=== PATIENT | male | born 1940 | race African-American/Black ===

== ENCOUNTER 2016-05-24 07:57 | Emergency (ER) | payer MEDICARE, BC, OTHER ==
[~2016-05-24] VITALS: Ht 172.7 cm; Wt 83.0 kg
[~2016-05-24 07:57] MED LIST: CARV3.125 PO; COMMODE 3:1; DIOV160T60 PO; DOCU1CAP39 PO; ERGO50000 PO; FERR324T4 PO; HYDR-3533 PO; NORV5TAB PO; OXYC5 PO; RANI150 PO; TAMS.4 PO; THERM PO; WALKER ROLLING; WHEELCHAIR RENTAL RA; [UNRECOGNIZED DRUG - CODE] TOP
[2016-05-24 08:04] VITALS: BP 166/114; PULSE 75; RESP 20; TEMP 98.7; O2SAT 97
[2016-05-24 08:12] VITALS: O2SAT 97
[2016-05-24] MEDS ORDERED: SODIUM CHLORIDE 0.9% FLUSH 5 ML FLUSH IVF PRN (08:15)
[2016-05-24 08:56] LABS: AUTOMATED NEUTROPHIL # 7.2 TH/MM3 (1.8-7.7); BASOPHIL % 0.3 % (0.0-2.0); EOSINOPHIL # 0.2 TH/MM3 (0-0.4); EOSINOPHIL % 1.7 % (0.0-4.0); HEMATOCRIT 46.2 % (39.0-51.0); HEMO FLAGS DIFF FINAL; LYMPH % 11.5 % (9.0-44.0); LYMPHOCYTE # 1.1 TH/MM3 (1.0-4.8); MEAN CORPUSCULAR HEMOGLOBIN 28.5 PG (27.0-34.0); MEAN CORPUSCULAR HGB CONC 32.7 % (32.0-36.0); MONO % 12.2 % (0.0-8.0); NEUT % 74.3 % (16.0-70.0); PLATELET COUNT 207 TH/MM3 (150-450); RED CELL DISTRIBUTION WIDTH 14.5 % (11.6-17.2); WHITE BLOOD COUNT 9.7 TH/MM3 (4.0-11.0)
--- NOTE | 2016-05-24 09:14 | PD ---
HPI Chief Complaint: Fall Time Seen by Provider: 08:40 Travel History International Travel<30 days: No Contact w/Intl Traveler<30days: No Traveled to known affect area: No History of Present Illness HPI 75-year-old male presents to the ER today because of several days history of feeling more weak, states that he tried to sit down in a couch yesterday and he slipped down to the floor hitting his left elbow. He denies any head injury or loss of consciousness. He is currently complaining of neck pains. He denies any fevers, chest pains, trouble breathing, or other symptoms. Modifying Factors: None Associated Signs & Symptoms: General weakness, fall Risk Factors: Elderly PFSH Past Medical History Arthritis: No Autoimmune Disease: No Heart Rhythm Problems: No Cancer: Yes (sarcoma, prostate CA) Cardiovascular Problems: Yes High Cholesterol: Yes Chemotherapy: No Chest Pain: No Congestive Heart Failure: No Cerebrovascular Accident: No Diabetes: Yes Diminished Hearing: No Endocrine: Yes Genitourinary: Yes Hypertension: Yes Immune Disorder: No Kidney Stones: No Musculoskeletal: Yes Neurologic: Yes Psychiatric: No Reproductive: No Respiratory: No Migraines: No Radiation Therapy: No Renal Failure: No Seizures: No Thyroid Disease: No Past Surgical History Abdominal Surgery: No Cardiac Surgery: No Ear Surgery: No Endocrine Surgery: No Eye Surgery: No Genitourinary Surgery: Yes (prostatectomy 2006) Gynecologic Surgery: No Oral Surgery: No Thoracic Surgery: No Other Surgery: Yes (SARCOMA REMOVED FROM RIGHT AND LEFT SHOULDER) Social History Alcohol Use: No Tobacco Use: No Substance Use: No Allergies-Medications (Allergen,Severity, Reaction): Coded Allergies: No Known Allergies (Verified , 05/24/16) Reported Meds & Prescriptions Reported Meds & Active Scripts Active Review of Systems Except as stated in HPI: all other systems reviewed are Neg Physical Exam Narrative GENERAL: Well-nourished, well-developed elderly -Stateless male patient in no acute distress. Awake, oriented 3. SKIN: Warm and dry. HEAD: Normocephalic. EYES: No scleral icterus. No injection or drainage. NECK: Supple, trachea midline. CARDIOVASCULAR: Regular rate and rhythm without murmurs, gallops, or rubs. RESPIRATORY: Breath sounds equal bilaterally. No accessory muscle use. GASTROINTESTINAL: Abdomen soft, non-tender, nondistended. MUSCULOSKELETAL: No cyanosis, or edema. BACK: Nontender without obvious deformity. No CVA tenderness. EXTREMITIES: No clubbing, cyanosis, or edema. No joint tenderness, effusion, or edema noted. No obvious deformities of the left elbow, nontender range of motion. Data Data Last Documented VS Vital Signs Date Time Temp Pulse Resp B/P Pulse Ox O2 Delivery O2 Flow Rate FiO2 05/24/16 11:01 65 18 126/95 98 Room Air 05/24/16 08:04 98.7 Orders Electrocardiogram (05/24/16 08:08) Complete Blood Count With Diff (05/24/16 08:08) Comprehensive Metabolic Panel (05/24/16 08:08) Magnesium (Mg) (05/24/16 08:08) Ckmb (Isoenzyme) Profile (05/24/16 08:08) Troponin I (05/24/16 08:08) Act Partial Throm Time (Ptt) (05/24/16 08:08) Prothrombin Time / Inr (Pt) (05/24/16 08:08) Urinalysis - C+S If Indicated (05/24/16 08:08) Chest, Single Ap (05/24/16 08:08) Ecg Monitoring (05/24/16 08:08) Iv Access Insert/Monitor (05/24/16 08:08) Oximetry (05/24/16 08:08) Sodium Chloride 0.9% Flush (Ns Flush) (05/24/16 08:15) Ct Brain W/O Iv Contrast(Rout) (05/24/16 08:48) Ct Cerv Spine W/O Contrast (05/24/16 08:48) Apply Cervical Collar (05/24/16 08:48) Cath For Specimen (05/24/16 08:48) Pelvis, Ap Only (Routine) (05/24/16 09:14) Elbow, Complete (4 Vws) (05/24/16 09:14) CKMB (05/24/16 08:40) CKMB% (05/24/16 08:40) Labs Laboratory Tests Test 05/24/16 05/24/16 08:40 11:00 White Blood Count 9.7 TH/MM3 Red Blood Count 5.30 MIL/MM3 Hemoglobin 15.1 GM/DL Hematocrit 46.2 % Mean Corpuscular Volume 87.0 FL Mean Corpuscular Hemoglobin 28.5 PG Mean Corpuscular Hemoglobin 32.7 % Concent Red Cell Distribution Width 14.5 % Platelet Count 207 TH/MM3 Mean Platelet Volume 9.9 FL Neutrophils (%) (Auto) 74.3 % Lymphocytes (%) (Auto) 11.5 % Monocytes (%) (Auto) 12.2 % Eosinophils (%) (Auto) 1.7 % Basophils (%) (Auto) 0.3 % Neutrophils # (Auto) 7.2 TH/MM3 Lymphocytes # (Auto) 1.1 TH/MM3 Monocytes # (Auto) 1.2 TH/MM3 Eosinophils # (Auto) 0.2 TH/MM3 Basophils # (Auto) 0.0 TH/MM3 CBC Comment DIFF FINAL Differential Comment Prothrombin Time 12.9 SEC Prothromb Time International 1.2 RATIO Ratio Activated Partial 30.7 SEC Thromboplast Time Sodium Level 144 MEQ/L Potassium Level 3.8 MEQ/L Chloride Level 110 MEQ/L Carbon Dioxide Level 23.9 MEQ/L Anion Gap 10 MEQ/L Blood Urea Nitrogen 10 MG/DL Creatinine 1.22 MG/DL Estimat Glomerular Filtration 70 ML/MIN Rate Random Glucose 99 MG/DL Calcium Level 9.1 MG/DL Magnesium Level 1.9 MG/DL Total Bilirubin 0.8 MG/DL Aspartate Amino Transf 13 U/L (AST/SGOT) Alanine Aminotransferase 18 U/L (ALT/SGPT) Alkaline Phosphatase 100 U/L Total Creatine Kinase 224 U/L Creatine Kinase MB 2.4 NG/ML Troponin I LESS THAN 0.02 NG/ML Total Protein 7.7 GM/DL Albumin 3.7 GM/DL Urine Color YELLOW Urine Turbidity CLEAR Urine pH 5.5 Urine Specific [place] 1.016 Urine Protein TRACE mg/dL Urine Glucose (UA) NEG mg/dL Urine Ketones NEG mg/dL Urine Occult Blood NEG Urine Nitrite NEG Urine Bilirubin NEG Urine Urobilinogen LESS THAN 2.0 MG/DL Urine Leukocyte Esterase NEG Urine RBC LESS THAN 1 /hpf Urine WBC LESS THAN 1 /hpf Microscopic Urinalysis Comment CULT NOT INDICATED MDM Medical Decision Making Medical Screen Exam Complete: Yes Emergency Medical Condition: Yes Medical Record Reviewed: Yes Interpretation(s) EKG shows normal sinus rhythm at a rate of 71 bpm. No signs of acute ST-T changes. Laboratory Tests Test 05/24/16 08:40 Neutrophils (%) (Auto) 74.3 % (16.0-70.0) Monocytes (%) (Auto) 12.2 % (0.0-8.0) Monocytes # (Auto) 1.2 TH/MM3 (0-0.9) Prothrombin Time 12.9 SEC (9.8-11.6) Activated Partial 30.7 SEC Thromboplast Time (24.3-30.1) Chloride Level 110 MEQ/L (98-107) Estimat Glomerular Filtration 70 ML/MIN (>89) Rate Aspartate Amino Transf 13 U/L (15-37) (AST/SGOT) Troponin I LESS THAN 0.02 NG/ML (0.02-0.05) Last [address] 05/24/16847 Signed Impressions: Service Date/Time: Tuesday, May 24, 2016 09:49 - CONCLUSION: Intracranially unchanged with no acute abnormality. Right posterior scalp subcutaneous nodule has increased in size from 2 now 3 cm with calcification possibly representing sebaceous cyst and correlation with clinical findings recommended. Oliver Agustin MD Cervical Spine CT 05/24/16847 Signed Impressions: Service Date/Time: Tuesday, May 24, 2016 09:49 - CONCLUSION: Extensive degenerative changes as described which are stable. No acute bony injury. Oliver Agustin MD Differential Diagnosis General weakness, falldehydration versus metabolic issues versus sepsis versus acute intracranial processes versus CVA Narrative Course Patient did not have a syncopal episode or loss of consciousness. He just could not get himself up after having fallen off the couch. He does not have any apparent injuries seen on x-rays or CAT scans. Lab work did not indicate significant metabolic issues, sepsis, or other acute processes. At this point, my plan would be to release the patient would follow-up to primary care physician. Return for any worsening in symptoms or new issues as needed. The plan was discussed with the patient and he states understanding. Diagnosis Primary Impression: Falls frequently Disposition: 01 DISCHARGE HOME Condition: Stable Nazario Hope MD May 24, 2016 09:14
[2016-05-24 09:21] LABS: APTT (PATIENT) 30.7 SEC (24.3-30.1); INTERNATIONAL NORMALIZED RATIO 1.2 RATIO; PROTHROMBIN TIME - PATIENT 12.9 SEC (9.8-11.6)
[2016-05-24 09:30] LABS: ANION GAP 10 MEQ/L (5-15); AST (GOT) 13 U/L (15-37); BICARBONATE 23.9 MEQ/L (21.0-32.0); BLOOD UREA NITROGEN 10 MG/DL (7-18); CHLORIDE 110 MEQ/L (98-107); GLOMERULAR FILTRATION RATE 70 ML/MIN (>89); MAGNESIUM 1.9 MG/DL (1.5-2.5); POTASSIUM 3.8 MEQ/L (3.5-5.1); SODIUM (NA) 144 MEQ/L (136-145)
[2016-05-24 09:35] LABS: ALKALINE PHOSPHATASE 100 U/L (45-117); ALT (GPT) 18 U/L (12-78); CREATINE KINASE 224 U/L (39-308); TOTAL BILIRUBIN ADULT 0.8 MG/DL (0.2-1.0)
[2016-05-24 09:48] LABS: CKMB 2.4 NG/ML (0.5-3.6)
--- NOTE | 2016-05-24 10:12 | RADRPT ---
EXAM DATE/TIME: 05/24/2016 09:49 [facility] COMPARISON: CT BRAIN W/O CONTRAST, August 14, 2015, 11:32. INDICATIONS : Weakness. RADIATION DOSE: 56.35 CTDIvol (mGy) MEDICAL HISTORY : Hypertension. Diabetes mellitus type 2. SURGICAL HISTORY : None. ENCOUNTER: Initial ACUITY: 1 day PAIN SCALE: 0/10 LOCATION: cranial TECHNIQUE: Multiple contiguous axial images were obtained of the head. Using automated exposure control and adj ustment of the mA and/or kV according to patient size, radiation dose was kept as low as reasonably a chievable to obtain optimal diagnostic quality images. FINDINGS: CEREBRUM: Stable generalized atrophy with prominent ventricles and sulci. No evidence of midline shift, mass le segundo, hemorrhage or acute infarction. No extra-axial fluid collections are seen. POSTERIOR FOSSA: The cerebellum and brainstem are intact. The 4th ventricle is midline. The cerebellopontine angle i s unremarkable. EXTRACRANIAL: The visualized portion of the orbits is intact. Subcutaneous nodule right posterior scalp is enlarged from 2 up to 3 cm now with some calcification. SKULL: The calvaria is intact. No evidence of skull fracture. CONCLUSION: Intracranially unchanged with no acute abnormality. Right posterior scalp subcutaneous nodule has increa sed in size from 2 now 3 cm with calcification possibly representing sebaceous cyst and correlation w ith clinical findings recommended. Oliver Agustin MD on May 24, 2016 at 10:07 Board Certified Radiologist. This report was verified electronically.
--- NOTE | 2016-05-24 10:15 | RADRPT ---
EXAM DATE/TIME: 05/24/2016 09:49 [facility] COMPARISON: CT CERVICAL SPINE W/O CONTRAST, August 14, 2015, 11:32. INDICATIONS : Neck pain. RADIATION DOSE: 40.19 CTDIvol (mGy) MEDICAL HISTORY : Hypertension. Diabetes mellitus type 2. SURGICAL HISTORY : None. ENCOUNTER: Initial ACUITY: 1 day PAIN SCALE: 3/10 LOCATION: neck TECHNIQUE: Volumetric scanning of the cervical spine was performed. Multiplanar reconstructions in the sagittal, coronal and oblique axial planes were performed. Using automated exposure control and adjustment o f the mA and/or kV according to patient size, radiation dose was kept as low as reasonably achievable to obtain optimal diagnostic quality images. FINDINGS: Alignment appears normal with no evidence of fracture, compression, subluxation or destructive change . Odontoid is no relation to arch of C1. Multilevel extensive degenerative changes is noted with dege nerative disc disease extending from C2 through T1 anterior marginal spurring and posterior lateral m ass facet arthritic changes. CONCLUSION: Extensive degenerative changes as described which are stable. No acute bony injury. Oliver Agustin MD on May 24, 2016 at 10:10 Board Certified Radiologist. This report was verified electronically.
--- NOTE | 2016-05-24 10:43 | RADRPT ---
EXAM DATE/TIME: 05/24/2016 08:36 [facility] COMPARISON: CHEST PA & LAT, September 02, 2015, 14:49. INDICATIONS : Palpitations, short of breath MEDICAL HISTORY : Hypertension. Diabetes mellitus type II. SURGICAL HISTORY : None. ENCOUNTER: Initial ACUITY: 1 day PAIN SCORE: Non-responsive. LOCATION: Bilateral chest FINDINGS: A single view of the chest demonstrates the lungs to be symmetrically aerated without evidence of mas s, infiltrate or effusion. The cardiomediastinal contours are unremarkable. Osseous structures are intact with scoliosis of the thoracic spine to the right and degenerative spurring.. CONCLUSION: No acute disease. Oliver Agustin MD on May 24, 2016 at 10:41 Board Certified Radiologist. This report was verified electronically.
--- NOTE | 2016-05-24 10:56 | RADRPT ---
EXAM DATE/TIME: 05/24/2016 09:53 [facility] COMPARISON: No previous studies available for comparison. INDICATIONS : Fall yesterday. MEDICAL HISTORY : None. SURGICAL HISTORY : None. ENCOUNTER: Initial ACUITY: 2 days PAIN SCORE: 7/10 LOCATION: Right pelvis FINDINGS: A single frontal view of the pelvis demonstrates no evidence of fracture. The bony pelvic ring is in tact. Bony mineralization is normal. The soft tissues are intact. CONCLUSION: Negative for fracture or dislocation. Followup in 7-10 days is suggested if symptoms persist. Primo Gregory MD FACR on May 24, 2016 at 10:53 Board Certified Radiologist. This report was verified electronically.
[2016-05-24 11:01] VITALS: BP 126/95; PULSE 65; RESP 18; O2SAT 98
[2016-05-24 11:23] LABS: BLOOD, URINE NEG (NEG); GLUCOSE,URINE NEG (NEG); KETONE, URINE NEG (NEG); NITRITE,URINE NEG (NEG); PH, URINE 5.5 (5.0-8.5); URINE COLOR YELLOW (YELLW/STRAW)
[2016-05-24 11:24] LABS: COMMENT (UR) CULT NOT INDICATED; CULTURE IF INDICATED CULT NOT INDICATED
--- NOTE | 2016-05-24 11:35 | RADRPT ---
EXAM DATE/TIME: 05/24/2016 09:43 [facility] COMPARISON: No previous studies available for comparison. INDICATIONS : Fall yesterday. MEDICAL HISTORY : None. SURGICAL HISTORY : None. ENCOUNTER: Initial ACUITY: 2 days PAIN SCORE: 9/10 LOCATION: Left upper extremity FINDINGS: Multiple view examination of the left elbow demonstrates no soft tissue swelling, joint effusion, or fracture. The osseous structures are in normal alignment. Bony mineralization is normal. CONCLUSION: Negative for fracture or dislocation. Followup in 7-10 days is suggested if symptoms persist. Primo Gregory MD FACR on May 24, 2016 at 11:27 Board Certified Radiologist. This report was verified electronically.
[2016-05-24] MEDS ORDERED: VALS1TAB65 PO (11:36)
[2016-05-24] MEDS ORDERED: TAMS0.4C4 PO (11:37)
[2016-05-24] MEDS ORDERED: OXYC1TAB13 PO (11:37)
[2016-05-24] MEDS ORDERED: ZANT150T2 PO (11:38)
[2016-05-24] MEDS ORDERED: FERR325T PO (11:41)
[2016-05-24] MEDS ORDERED: HYDR-3533 PO (11:41)
[2016-05-24] MEDS ORDERED: DRIS50002 PO (11:41)
[2016-05-24] MEDS ORDERED: THERTAB17 PO (11:41)
[2016-05-24] MEDS ORDERED: AMLO5 PO (11:41)
[2016-05-24] MEDS ORDERED: COLA100C3 PO (11:42)
[2016-05-24] MEDS ORDERED: CARV3.12 PO (11:45)
[2016-05-24] MEDS ORDERED: [UNRECOGNIZED DRUG - CODE] TOP (11:45)
[2016-05-24 16:19] VITALS: BP 148/75
--- NOTE | 2016-05-24 17:09 | EKG ---
Date Performed: 05/24/2016 Time Performed: 09:19:09 PTAGE: 75 years EKG: Sinus rhythm WITH FIRST DEGREE AV BLOCK INDETERMINATE AXIS POSSIBLE ANTERIOR MYOCARDIAL INFARCTION Compared to pr ior tracing no significant change ABNORMAL ECG PREVIOUS TRACING : 08/15/2015 05.37 DOCTOR: Lilli Spence Interpretating Date/Time 05/24/2016 17:07:24
== END 2016-05-24 16:21 | disposition home or self-care (01) ==
LOC: NEPC 07:57
DX: R29.6 Repeated falls (principal); M25.522 Pain in left elbow; M54.2 Cervicalgia; Z85.46 Personal history of malignant neoplasm of prostate; E78.00 Pure hypercholesterolemia, unspecified; E11.9 Type 2 diabetes mellitus without complications; R94.31 Abnormal electrocardiogram [ECG] [EKG]; I10 Essential (primary) hypertension; I44.0 Atrioventricular block, first degree; W08.XXXA Fall from other furniture, initial encounter; Y92.009 Unspecified place in unspecified non-institutional (private) residence as the place of occurrence of the external cause; Y99.8 Other external cause status
CPT/HCPCS: 70450; 71010; 72125; 72170; 73080; 80053; 81001; 82550; 82552; 83735; 84484; 85025; 85610; 85730; 93005; 99285; L0150; P9612

== ENCOUNTER 2016-05-30 12:48 | Observation (INO) | payer MEDICARE, BC, OTHER ==
[2016-05-30] VITALS (7 sets, daily range): BP systolic 122–150; BP diastolic 74–103; PULSE 65–93; RESP 16–22; TEMP 97.6–98.2; O2SAT 95–97
[~2016-05-30] VITALS: Ht 172.7 cm; Wt 83.0 kg
[~2016-05-30 12:48] MED LIST changes: +AMLO5 PO; +CARV3.12 PO; -CARV3.125 PO; +COLA100C3 PO; -COMMODE 3:1; -DIOV160T60 PO; -DOCU1CAP39 PO; +DRIS50002 PO; -ERGO50000 PO; -FERR324T4 PO; +FERR325T PO; -NORV5TAB PO; +OXYC1TAB13 PO; -OXYC5 PO; -RANI150 PO; -TAMS.4 PO; +TAMS0.4C4 PO; -THERM PO; +THERTAB17 PO; +VALS1TAB65 PO; -WALKER ROLLING; -WHEELCHAIR RENTAL RA; +ZANT150T2 PO; +[UNRECOGNIZED DRUG - CODE] TOP; -[UNRECOGNIZED DRUG - CODE] TOP
--- NOTE | 2016-05-30 13:06 | PD ---
HPI Chief Complaint: Fall Time Seen by Provider: 13:06 Travel History International Travel<30 days: No Contact w/Intl Traveler<30days: No Traveled to known affect area: No History of Present Illness HPI 75-year-old male with a history of hypertension, hyperlipidemia, excision of sarcomas at right and left shoulders, prostatectomy for prostate cancer presents to the emergency department for the second time in a week for evaluation of weakness and fall. The patient states that he was at home and tried to stand up but felt weak bracing himself on a small television in his living room but lost his balance falling to the floor onto his chest. He denies head trauma or loss of consciousness. He states that he had chest pain for about 10 minutes after falling onto his chest which is what prompted him to call EMS. Currently his only complaint is generalized weakness. He denies chest pain, shortness of breath, lightheadedness, dizziness, numbness or tingling, headache, fever, chills, abdominal pain, nausea, vomiting, diarrhea, cough or cold symptoms. He has left periorbital ecchymosis and swelling which she reports is old and that [facility]. Patient normally ambulates with a wheelchair or walker. He does live at home alone. No other complaints. PFSH Past Medical History Arthritis: No Autoimmune Disease: No Heart Rhythm Problems: No Cancer: Yes (sarcoma, prostate CA) Cardiovascular Problems: Yes High Cholesterol: Yes Chemotherapy: No Chest Pain: No Congestive Heart Failure: No Cerebrovascular Accident: No Diabetes: Yes Patient Takes Glucophage: No Diminished Hearing: No Endocrine: Yes Genitourinary: Yes Hypertension: Yes Immune Disorder: No Kidney Stones: No Musculoskeletal: Yes Neurologic: Yes Psychiatric: No Reproductive: No Respiratory: No Migraines: No Radiation Therapy: No Renal Failure: No Seizures: No Thyroid Disease: No Past Surgical History Abdominal Surgery: No Cardiac Surgery: No Ear Surgery: No Endocrine Surgery: No Eye Surgery: No Genitourinary Surgery: Yes (prostatectomy 2006) Gynecologic Surgery: No Oral Surgery: No Thoracic Surgery: No Other Surgery: Yes (SARCOMA REMOVED FROM RIGHT AND LEFT SHOULDER) Social History Alcohol Use: No Tobacco Use: No Substance Use: No Allergies-Medications (Allergen,Severity, Reaction): Coded Allergies: No Known Allergies (Verified , 05/24/16) Reported Meds & Prescriptions Reported Meds & Active Scripts Active Reported Carvedilol 3.125 Mg Tab 3.125 Mg PO Q12HR Tgt Bacitracin (Bacitracin (Topical)) 500 Unit/Gm Oin 0.9 Gm TOP DAILY Thera-M (Multiple Vitamins W/ Minerals) 1 Tab 1 Tab PO DAILY Norvasc (Amlodipine Besylate) 5 Mg Tab 5 Mg PO DAILY Tamsulosin (Tamsulosin HCl) 0.4 Mg Cap 0.4 Mg PO HS Valsartan 160 Mg Tab 160 Mg PO DAILY Review of Systems Except as stated in HPI: all other systems reviewed are Neg Physical Exam Narrative GENERAL: Frail elderly male patient in no acute distress. SKIN: Abrasion to left forehead. HEAD: Normocephalic and atraumatic. EYES: Left periorbital ecchymosis and swelling with subconjunctival hemorrhage of left eye. There is some crusting of the eyelids bilaterally. No scleral icterus. PERRLA. EOMI. No hyphema present. ENT: No septal hematoma or hemotympanum noted. Oropharynx is clear and the airway is patent. NECK: Supple and the trachea is midline. No obvious deformities, crepitus, or midline tenderness noted. CARDIOVASCULAR: Regular rate and rhythm. RESPIRATORY: Breath sounds are equal bilaterally with no accessory muscle use, wheezing, rhonchi, or crackles. GASTROINTESTINAL: Abdomen is soft, non-tender, and nondistended. MUSCULOSKELETAL: Surgical scars noted to bilateral shoulders with decreased range of motion in shoulder he reports as chronic secondary to surgeries. No obvious deformities, swelling, cyanosis, or ecchymosis is present throughout the upper and lower extremities. Patient has full range of motion without any signs of neurovascular compromise. BACK: Nontender without any obvious deformities, bony point tenderness, or crepitus noted throughout the thoracic and lumbar vertebrae. NEUROLOGICAL: Awake, alert, and oriented to person, place and situation He is disoriented to time. Normal speech and gait. Cranial nerves are grossly intact. Data Data Last Documented VS Vital Signs Date Time Temp Pulse Resp B/P Pulse Ox O2 Delivery O2 Flow Rate FiO2 05/30/16 14:15 71 22 150/85 97 Room Air 05/30/16 12:58 98.2 Orders Electrocardiogram (05/30/16 13:03) Ckmb (Isoenzyme) Profile (05/30/16 13:03) Complete Blood Count With Diff (05/30/16 13:03) Comprehensive Metabolic Panel (05/30/16 13:03) Prothrombin Time / Inr (Pt) (05/30/16 13:03) Act Partial Throm Time (Ptt) (05/30/16 13:03) Troponin I (05/30/16 13:03) Ecg Monitoring (05/30/16 13:03) Iv Access Insert/Monitor (05/30/16 13:03) Oximetry (05/30/16 13:03) Sodium Chloride 0.9% Flush (Ns Flush) (05/30/16 13:15) Chest, Single Ap (05/30/16 13:03) Ct Brain W/O Iv Contrast(Rout) (05/30/16 13:03) Ct Cerv Spine W/O Contrast (05/30/16 13:03) Ct Facial Bones W/O Iv Cont (05/30/16 13:03) Creatine Kinase (Cpk) (05/30/16 13:03) Urinalysis - C+S If Indicated (05/30/16 13:38) Vascular Access (05/30/16 13:41) Vascular Poc Ultrasound (05/30/16 ) CKMB (05/30/16 14:20) CKMB% (05/30/16 14:20) Admit Order (Ed Use Only) (05/30/16 15:20) Labs Laboratory Tests Test 05/30/16 05/30/16 13:41 14:20 Urine Color YELLOW Urine Turbidity CLEAR Urine pH 5.5 Urine Specific [place] 1.020 Urine Protein TRACE mg/dL Urine Glucose (UA) NEG mg/dL Urine Ketones 10 mg/dL Urine Occult Blood NEG Urine Nitrite NEG Urine Bilirubin NEG Urine Urobilinogen LESS THAN 2.0 MG/DL Urine Leukocyte Esterase NEG Urine RBC 1 /hpf Urine WBC 1 /hpf Urine Mucus FEW /lpf Microscopic Urinalysis Comment CULT NOT INDICATED White Blood Count 12.3 TH/MM3 Red Blood Count 4.75 MIL/MM3 Hemoglobin 13.9 GM/DL Hematocrit 41.5 % Mean Corpuscular Volume 87.3 FL Mean Corpuscular Hemoglobin 29.3 PG Mean Corpuscular Hemoglobin 33.5 % Concent Red Cell Distribution Width 14.7 % Platelet Count 180 TH/MM3 Mean Platelet Volume 10.5 FL Neutrophils (%) (Auto) 73.5 % Lymphocytes (%) (Auto) 9.6 % Monocytes (%) (Auto) 15.6 % Eosinophils (%) (Auto) 0.8 % Basophils (%) (Auto) 0.5 % Neutrophils # (Auto) 9.0 TH/MM3 Lymphocytes # (Auto) 1.2 TH/MM3 Monocytes # (Auto) 1.9 TH/MM3 Eosinophils # (Auto) 0.1 TH/MM3 Basophils # (Auto) 0.1 TH/MM3 CBC Comment DIFF FINAL Differential Comment Prothrombin Time 12.7 SEC Prothromb Time International 1.1 RATIO Ratio Activated Partial 31.7 SEC Thromboplast Time Sodium Level 141 MEQ/L Potassium Level 4.8 MEQ/L Chloride Level 108 MEQ/L Carbon Dioxide Level 23.4 MEQ/L Anion Gap 10 MEQ/L Blood Urea Nitrogen 24 MG/DL Creatinine 1.21 MG/DL Estimat Glomerular Filtration 71 ML/MIN Rate Random Glucose 78 MG/DL Calcium Level 8.9 MG/DL Total Bilirubin 1.0 MG/DL Aspartate Amino Transf 48 U/L (AST/SGOT) Alanine Aminotransferase 29 U/L (ALT/SGPT) Alkaline Phosphatase 86 U/L Total Creatine Kinase 521 U/L Creatine Kinase MB 7.3 NG/ML Creatine Kinase MB % 1.4 % Troponin I LESS THAN 0.02 NG/ML Total Protein 7.1 GM/DL Albumin 3.2 GM/DL [facility] Medical Decision Making Medical Screen Exam Complete: Yes Emergency Medical Condition: Yes Differential Diagnosis Dehydration versus electrolyte abnormality versus impaired ADLs versus frequent falls versus intracranial hemorrhage versus contusion Narrative Course 75-year-old male presents to the emergency department for evaluation of generalized weakness and frequent falls. Patient is afebrile, vital signs are stable. No focal neurologic deficits. He does have some left periorbital ecchymosis on examination, it appears subacute however was not noted on examination when the patient was seen here in our ED 6 days ago therefore I'm unsure when this occurred and the patient is stating he fell today. Therefore we'll do a head, maxillofacial and cervical spine CT. IV access is obtained, labs were drawn and sent. EKG shows sinus rhythm with no acute ST elevations or depressions. CBC shows a slightly elevated white blood cell count of 12.3, otherwise unremarkable. CMP shows slightly elevated BUN of 24, slightly elevated CPK of 521. Patient may be mildly dehydrated. Troponin is less than 0.02. Coags are unremarkable. Urinalysis shows 10 ketones and few mucus. Chest x-ray is negative for acute abnormality. Head CT is negative for any Abnormality. Cervical spine CT is negative for any Abnormality. Maxillofacial CT is negative for any acute abnormalities. Patient has remained stable and without complaint while here in the emergency department. The patient is weak and lives at home alone. This is the second time he has been to our emergency department in the last week for a fall. He is a fall risk and will require physical therapy evaluation and possible placement or home health care. Physician Communication Physician Communication I spoke with Dr. Naranjo [facility] who agrees to admit the patient under his service for observation. Diagnosis Primary Impression: Generalized weakness Additional Impressions: Falls frequently Impaired mobility and activities of daily living Admitting Information Admitting Physician Requests: Observation Anisha Beckett May 30, 2016 13:06
[2016-05-30] MEDS ORDERED: SODIUM CHLORIDE 0.9% FLUSH 5 ML FLUSH IVF PRN (13:15)
--- NOTE | 2016-05-30 13:35 | RADRPT ---
EXAM DATE/TIME: 05/30/2016 13:17 [facility] COMPARISON: CHEST SINGLE AP, May 24, 2016, 8:36. INDICATIONS : Chest pain. MEDICAL HISTORY : None. SURGICAL HISTORY : None. ENCOUNTER: Initial ACUITY: 1 day PAIN SCORE: 4/10 LOCATION: Bilateral chest FINDINGS: A single view of the chest demonstrates the lungs to be symmetrically aerated without evidence of mas s, infiltrate or effusion. The cardiomediastinal contours are unremarkable. Osseous structures are intact. There some old healed right-sided rib fractures. There are degenerative changes of the thorac ic spine. CONCLUSION: No acute disease. No significant change has occurred. Wilber Higgins MD on May 30, 2016 at 13:32 Board Certified Radiologist. This report was verified electronically.
[2016-05-30 14:00] LABS: BLOOD, URINE NEG (NEG); GLUCOSE,URINE NEG (NEG); KETONE, URINE 10 mg/dL (NEG); MUCUS URINE FEW /lpf (OCC); NITRITE,URINE NEG (NEG); PH, URINE 5.5 (5.0-8.5); URINE COLOR YELLOW (YELLW/STRAW)
[2016-05-30 14:03] LABS: COMMENT (UR) CULT NOT INDICATED; CULTURE IF INDICATED CULT NOT INDICATED
--- NOTE | 2016-05-30 14:09 | RADRPT ---
EXAM DATE/TIME: 05/30/2016 13:48 [facility] COMPARISON: CT BRAIN W/O CONTRAST, May 24, 2016, 9:49. INDICATIONS : Alterd mental status. Fell this morning. RADIATION DOSE: 45.63 CTDIvol (mGy) MEDICAL HISTORY : Cardiovascular disease. Hypertension. Diabetes mellitus type 2. SURGICAL HISTORY : None. ENCOUNTER: Initial ACUITY: 1 day PAIN SCALE: 5/10 LOCATION: cranial TECHNIQUE: Multiple contiguous axial images were obtained of the head. Using automated exposure control and adj ustment of the mA and/or kV according to patient size, radiation dose was kept as low as reasonably a chievable to obtain optimal diagnostic quality images. FINDINGS: CEREBRUM: The ventricles are normal for age. No evidence of midline shift, mass lesion, hemorrhage or acute in farction. There is a stable small left-sided subdural hygroma with a 1.2 cm of separation. The stable hygroma is along the left frontal parietal region. This is unchanged compared to the prior exam. The re is stable chronic white matter changes in bilateral cortical atrophy. POSTERIOR FOSSA: The cerebellum and brainstem are intact. The 4th ventricle is midline. The cerebellopontine angle i s unremarkable. EXTRACRANIAL: The visualized portion of the orbits is intact. Chronic bilateral maxillary sinus disease. Stable 1.2 cm soft tissue density in the subcutaneous soft tissues along the posterior right occipital area. SKULL: The calvaria is intact. No evidence of skull fracture. CONCLUSION: 1. Stable CT scan of the brain compared to the prior study. 2. 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 3. No change in the soft tissue mass in the subcutaneous soft tissues along the posterior right occip ital area. Wilber Higgins MD on May 30, 2016 at 14:04 Board Certified Radiologist. This report was verified electronically.
--- NOTE | 2016-05-30 14:15 | RADRPT ---
EXAM DATE/TIME: 05/30/2016 13:48 [facility] COMPARISON: CT CERVICAL SPINE W/O CONTRAST, May 24, 2016, 9:49. INDICATIONS : Fell this morning. Pain. RADIATION DOSE: 21.86 CTDIvol (mGy) MEDICAL HISTORY : Cardiovascular disease. Carcinoma, prostate. Hypertension. SURGICAL HISTORY : None. ENCOUNTER: Initial ACUITY: 1 day PAIN SCALE: 5/10 LOCATION: neck TECHNIQUE: Volumetric scanning of the cervical spine was performed. Multiplanar reconstructions in the sagittal, coronal and oblique axial planes were performed. Using automated exposure control and adjustment o f the mA and/or kV according to patient size, radiation dose was kept as low as reasonably achievable to obtain optimal diagnostic quality images. FINDINGS: Today's exam is compared to the recent prior study which was performed only a few days ago. There con tinues to be diffuse and extensive primary bony degenerative changes, disc degeneration and disc spac e narrowing throughout the entire cervical spine. No acute bony fracture is demonstrated. The degener ative changes are stable. No focal soft tissue swelling is demonstrated. No significant extra dural d efects are seen in the spinal canal. CONCLUSION: Stable CT scan of the cervical spine compared to the recent prior study. Wilber Higgins MD on May 30, 2016 at 14:11 Board Certified Radiologist. This report was verified electronically.
--- NOTE | 2016-05-30 14:16 | RADRPT ---
EXAM DATE/TIME: 05/30/2016 13:48 [facility] COMPARISON: No previous studies available for comparison. INDICATIONS : Fell this morning. RADIATION DOSE: 64.24 CTDIvol (mGy) MEDICAL HISTORY : Cardiovascular disease. Carcinoma, prostate. Hypertension. SURGICAL HISTORY : None. ENCOUNTER: Initial ACUITY: 1 day PAIN SCORE: 5/10 LOCATION: facial TECHNIQUE: Volumetric scanning of the facial bones was performed. Using automated exposure control and adjustme nt of the mA and/or kV according to patient size, radiation dose was kept as low as reasonably achiev able to obtain optimal diagnostic quality images. FINDINGS: ORBITS: The orbital and infraorbital osseous structures are intact. The retroconal structures have a normal configuration. No radiopaque foreign bodies are seen. NASAL BONE: The nasal bone and maxillary spine are intact ZYGOMATIC ARCHES: Symmetric without evidence of fracture. SINUSES: There is chronic amezquita sinus disease the paranasal sinuses bilaterally. No definite air-fluid levels ar e demonstrated. NASAL CAVITY: Mild nasal septal deviation to the right. SOFT TISSUES: No radiopaque foreign bodies seen. No soft-tissue swelling is seen. INTRACRANIAL: No intracranial air seen. CRIBIFORM PLATE: Grossly intact. CONCLUSION: 1. No acute bony fracture. 2. Chronic bilateral amezquita sinus disease. Wilber Higgins MD on May 30, 2016 at 14:14 Board Certified Radiologist. This report was verified electronically.
[2016-05-30 14:32] LABS: BASOPHIL # 0.1 TH/MM3 (0-0.2); BASOPHIL % 0.5 % (0.0-2.0); EOSINOPHIL # 0.1 TH/MM3 (0-0.4); EOSINOPHIL % 0.8 % (0.0-4.0); HEMATOCRIT 41.5 % (39.0-51.0); HEMO FLAGS DIFF FINAL; LYMPH % 9.6 % (9.0-44.0); LYMPHOCYTE # 1.2 TH/MM3 (1.0-4.8); MEAN CELL VOLUME 87.3 FL (80.0-100.0); MEAN CORPUSCULAR HEMOGLOBIN 29.3 PG (27.0-34.0); MEAN CORPUSCULAR HGB CONC 33.5 % (32.0-36.0); MONO % 15.6 % (0.0-8.0); NEUT % 73.5 % (16.0-70.0); PLATELET COUNT 180 TH/MM3 (150-450); RED BLOOD COUNT 4.75 MIL/MM3 (4.50-5.90); RED CELL DISTRIBUTION WIDTH 14.7 % (11.6-17.2); WHITE BLOOD COUNT 12.3 TH/MM3 (4.0-11.0)
[2016-05-30 14:41] LABS: APTT (PATIENT) 31.7 SEC (24.3-30.1); INTERNATIONAL NORMALIZED RATIO 1.1 RATIO; PROTHROMBIN TIME - PATIENT 12.7 SEC (9.8-11.6)
[2016-05-30 15:03] LABS: ANION GAP 10 MEQ/L (5-15); AST (GOT) 48 U/L (15-37); BICARBONATE 23.4 MEQ/L (21.0-32.0); BLOOD UREA NITROGEN 24 MG/DL (7-18); CHLORIDE 108 MEQ/L (98-107); GLOMERULAR FILTRATION RATE 71 ML/MIN (>89); POTASSIUM 4.8 MEQ/L (3.5-5.1); SODIUM (NA) 141 MEQ/L (136-145)
[2016-05-30 15:08] LABS: ALKALINE PHOSPHATASE 86 U/L (45-117); ALT (GPT) 29 U/L (12-78); CREATINE KINASE 521 U/L (39-308)
[2016-05-30 15:20] LABS: CKMB 7.3 NG/ML (0.5-3.6)
[2016-05-30] MEDS ORDERED: SODIUM CHLOR 0.9% 1000 ML INJ 1,000 ML IV SCH (15:22)
[2016-05-30] MEDS ORDERED: ACETAMINOPHEN 325 MG TAB PO PRN (15:30)
[2016-05-30] MEDS ORDERED: ONDANSETRON HCL 4 MG/2 ML VIAL IVP PRN (15:30)
[2016-05-30] MEDS ORDERED: NALOXONE HCL 0.4 MG/ML AMP IV PRN (15:30)
[2016-05-30] MEDS ORDERED: SODIUM CHLORIDE 0.9% FLUSH 5 ML FLUSH FLUSH PRN (15:30)
[2016-05-30] MEDS ORDERED: MAGNESIUM HYDROXIDE SUSP 30 ML CUP PO PRN (15:30)
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
--- NOTE | 2016-05-30 18:00 | EKG ---
Date Performed: 05/30/2016 Time Performed: 12:53:12 PTAGE: 75 years EKG: Sinus rhythm POSSIBLE ANTERIOR MYOCARDIAL INFARCTION ABNORMAL ECG PREVIOUS TRACING : 05/24/2016 09.19 Compared to previous tracing, nonspecific T wave changes leone ve resolved. DOCTOR: Brady Green Interpretating Date/Time 05/30/2016 17:58:36
[2016-05-30] MEDS: SODIUM CHLORIDE 0.9% FLUSH 5 ML FLUSH FLUSH SCH (23:19)
[2016-05-30] MEDS: CARVEDILOL 3.125 MG TAB PO SCH (23:19)
[2016-05-30] MEDS: TAMSULOSIN HCL 0.4 MG CAP PO SCH (23:19)
[2016-05-31 04:00] VITALS: BP 137/67; PULSE 64; RESP 16; TEMP 97.8; O2SAT 98
[2016-05-31 08:08] VITALS: BP 118/83; PULSE 73; RESP 20; TEMP 98.6; O2SAT 93
[2016-05-31] MEDS: amLODIPine BESYLATE 5 MG TAB PO SCH (08:32)
[2016-05-31] MEDS: MULTIVITAMINS/MINERALS THERAPEUTIC TAB PO SCH (08:32)
[2016-05-31] MEDS: VALSARTAN 160 MG TAB PO SCH (08:32)
[2016-05-31] MEDS: CARVEDILOL 3.125 MG TAB PO SCH ×2 (08:32→20:12)
[2016-05-31] MEDS: SODIUM CHLORIDE 0.9% FLUSH 5 ML FLUSH FLUSH SCH ×2 (08:34→20:12)
[2016-05-31] MEDS: BACITRACIN OINT 0.9 GM PKT TOP SCH (08:43)
[2016-05-31] MEDS ORDERED: BACITRACIN TOP SCH (09:00)
[2016-05-31 12:05] VITALS: BP 98/64; PULSE 70; RESP 20; TEMP 98.1; O2SAT 93
--- NOTE | 2016-05-31 15:31 | HHI.PR ---
Subjective Remarks Patient reports that he is feeling okay. He understand that he is too weak and cannot be at home alone. He states that his daughter is ready for him to come to [place]. Objective Vitals Vital Signs Date Time Temp Pulse Resp B/P Pulse Ox O2 Delivery O2 Flow Rate FiO2 05/31/16 12:05 98.1 70 20 98/64 93 05/31/16 08:08 98.6 73 20 118/83 93 05/31/16 04:00 97.8 64 16 137/67 98 05/30/16 23:34 97.6 93 16 134/74 96 05/30/16 17:44 98.0 82 18 125/75 95 05/30/16 16:50 76 19 137/85 96 I/O 05/30/16 05/30/16 05/30/16 05/31/16 05/31/16 05/31/16 07:00 15:00 23:00 07:00 15:00 23:00 # Voids 2 1 # Bowel Movements 1 Result Diagram: 05/30/16 1420 05/30/16 1420 Imaging Last Impressions Maxillofacial CT 05/30/16 1303 Signed Impressions: Service Date/Time: Monday, May 30, 2016 13:48 - CONCLUSION: 1. No acute bony fracture. 2. Chronic bilateral amezquita sinus disease. Wilber Higgins MD Head CT 05/30/16 130 Signed Impressions: Service Date/Time: Monday, May 30, 2016 13:48 - CONCLUSION: 1. Stable CT scan of the brain compared to the prior study. 2. 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 3. No change in the soft tissue mass in the subcutaneous soft tissues along the posterior right occipital area. Wilber Higgins MD Chest X-Ray 05/30/16 130 Signed Impressions: Service Date/Time: Monday, May 30, 2016 13:17 - CONCLUSION: No acute disease. No significant change has occurred. Wilber Higgins MD Cervical Spine CT 05/30/16 130 Signed Impressions: Service Date/Time: Monday, May 30, 2016 13:48 - CONCLUSION: Stable CT scan of the cervical spine compared to the recent prior study. Wilber Higgins MD Objective Remarks GENERAL: Elderly male. Patient appears frail CARDIOVASCULAR: Normal rate and regular rhythm without murmurs, gallops, or rubs. RESPIRATORY: Good respiratory efforts. Breath sounds equal and clear to auscultation bilaterally. GASTROINTESTINAL: Abdomen soft, non-tender, non-distended. Normal active bowel sounds MUSCULOSKELETAL: Extremities without cyanosis, or edema. NEURO: Patient is oriented to place and time. He still believe the year is 2076. But he knows his whereabouts, the month and day. he understand why he is in the hospital. He does have rigidity. PSYCH: Appropriate mood and affect. A/P Assessment and Plan 75 Y/O male with medical history significant for hypertension, prostate cancer, CVA and Parkinsonian features in 2016. Patient presents emergency department after a fall. Patient reports he was trying to lift the television in preparation for moving to [place] to live with his daughter tomorrow this caused patient to fall. Patient reports he's had generalized weakness for the past 8 months with increasing falls. Patient is noted to have left periorbital ecchymosis. Apparently patient has been declining. Last year he was evaluated by neurology and thought to have parkinsonian features. He appears to be getting worse. Essentially the patient cannot live on his own. He needs to be in the facility. Placement is an issue. I discussed with case management. One option may be for his daughter to come down and fly back with him to [place] where she reportedly has a senior facility picked out for him. Meanwhile will continue physical therapy here. Hypertension continue home medications amlodipine 5 mg daily, Coreg 3.125 mg every 12 hours, valsartan 160 mg by mouth daily BPH with history of prostate cancer Continue Flomax Jason Naranjo MD May 31, 2016 15:31
[2016-05-31 16:06] VITALS: BP 103/70; PULSE 71; RESP 18; TEMP 98.1; O2SAT 93
[2016-05-31 20:09] VITALS: BP 107/63; PULSE 82; RESP 18; TEMP 97.8; O2SAT 98
[2016-05-31] MEDS: TAMSULOSIN HCL 0.4 MG CAP PO SCH (20:12)
[2016-06-01] VITALS: BP 110/68; PULSE 67; RESP 18; TEMP 98; O2SAT 97
[2016-06-01 04:00] VITALS: BP 111/56; PULSE 68; RESP 18; TEMP 98; O2SAT 97
[2016-06-01 07:30] VITALS: BP 108/70; PULSE 65; RESP 18; TEMP 97.8; O2SAT 96
[2016-06-01] MEDS: SODIUM CHLORIDE 0.9% FLUSH 5 ML FLUSH FLUSH SCH ×2 (08:33→20:30)
[2016-06-01] MEDS: BACITRACIN OINT 0.9 GM PKT TOP SCH (08:33)
[2016-06-01] MEDS: amLODIPine BESYLATE 5 MG TAB PO SCH (08:33)
[2016-06-01] MEDS: VALSARTAN 160 MG TAB PO SCH (08:33)
[2016-06-01] MEDS: MULTIVITAMINS/MINERALS THERAPEUTIC TAB PO SCH (08:33)
[2016-06-01] MEDS: CARVEDILOL 3.125 MG TAB PO SCH ×2 (08:33→20:26)
[2016-06-01 11:10] VITALS: BP 94/62; PULSE 77; RESP 18; TEMP 98; O2SAT 94
[2016-06-01 14:30] VITALS: BP 118/76; PULSE 65; RESP 20; TEMP 98.3; O2SAT 95
--- NOTE | 2016-06-01 16:56 | HHI.PR ---
Subjective Remarks No new complaints. GIL RN. Patient has been more confused. He is aware that his daughter will be coming to get him. Objective Vitals Vital Signs Date Time Temp Pulse Resp B/P Pulse Ox O2 Delivery O2 Flow Rate FiO2 06/01/16 14:30 98.3 65 20 118/76 95 06/01/16 11:10 98.0 77 18 94/62 94 06/01/16 07:30 97.8 65 18 108/70 96 06/01/16 04:00 98.0 68 18 111/56 97 06/01/16 00:00 98.0 67 18 110/68 97 05/31/16 20:09 97.8 82 18 107/63 98 I/O 05/31/16 05/31/16 05/31/16 06/01/16 06/01/16 06/01/16 07:00 15:00 23:00 07:00 15:00 23:00 # Voids 1 # Bowel Movements 1 Result Diagram: 05/30/16 1420 05/30/16 1420 Objective Remarks GENERAL: Elderly male. Patient appears frail CARDIOVASCULAR: Normal rate and regular rhythm without murmurs, gallops, or rubs. RESPIRATORY: Good respiratory efforts. Breath sounds equal and clear to auscultation bilaterally. GASTROINTESTINAL: Abdomen soft, non-tender, non-distended. Normal active bowel sounds MUSCULOSKELETAL: Extremities without cyanosis, or edema. NEURO: Patient is oriented to self and place but not to time. He does have rigidity. PSYCH: Appropriate mood and affect. A/P Assessment and Plan 75 Y/O male with medical history significant for hypertension, prostate cancer, CVA and Parkinsonian features in 2016. Patient presents emergency department after a fall. Patient reports he was trying to lift the television in preparation for moving to [place] to live with his daughter which caused patient to fall. Patient reports he's had generalized weakness for the past 8 months with increasing falls. Patient is noted to have left periorbital ecchymosis. Apparently patient has been declining. Last year he was evaluated by neurology and thought to have parkinsonian features. He appears to be getting worse. Essentially the patient cannot live on his own. He needs to be in the facility. 06/01/16. Daughter agreed to come pick him up and take him to [place]. She is touring facilities in [place]. Case management following. Meanwhile will continue physical therapy here. I believe intermittent confusion is related to sundowning and dementia. Continue with frequent orientation. Hypertension continue home medications amlodipine 5 mg daily, Coreg 3.125 mg every 12 hours, valsartan 160 mg by mouth daily BPH with history of prostate cancer Continue Jason Freedman MD Jun 01, 2016 16:56
[2016-06-01 18:40] VITALS: BP 127/81; PULSE 66; RESP 18; O2SAT 92
[2016-06-01] MEDS: TAMSULOSIN HCL 0.4 MG CAP PO SCH (20:26)
[2016-06-02 00:28] VITALS: BP 103/63; PULSE 60; RESP 22; TEMP 96.8; O2SAT 95
[2016-06-02 05:19] VITALS: BP 120/73; PULSE 57; RESP 20; TEMP 98.6; O2SAT 96
[2016-06-02] MEDS: BACITRACIN OINT 0.9 GM PKT TOP SCH (09:00)
[2016-06-02] MEDS: CARVEDILOL 3.125 MG TAB PO SCH ×2 (09:28→21:27)
[2016-06-02] MEDS: VALSARTAN 160 MG TAB PO SCH (09:28)
[2016-06-02] MEDS: MULTIVITAMINS/MINERALS THERAPEUTIC TAB PO SCH (09:28)
[2016-06-02] MEDS: SODIUM CHLORIDE 0.9% FLUSH 5 ML FLUSH FLUSH SCH ×2 (09:28→21:27)
[2016-06-02] MEDS: amLODIPine BESYLATE 5 MG TAB PO SCH (09:28)
--- NOTE | 2016-06-02 13:49 | HHI.PR ---
Subjective Remarks Patient tells his daughter will no longer come to get him because she found out he does not qualify for SNF in [place]. Patient indicated he would like to go to an [facility]. He has no complaints. Eating well. Working with PT. Objective Vitals Vital Signs Date Time Temp Pulse Resp B/P Pulse Ox O2 Delivery O2 Flow Rate FiO2 06/02/16 05:19 98.6 57 20 120/73 96 06/02/16 00:28 96.8 60 22 103/63 95 06/01/16 18:40 66 18 127/81 92 06/01/16 14:30 98.3 65 20 118/76 95 I/O 06/01/16 06/01/16 06/01/16 06/02/16 06/02/16 06/02/16 07:00 15:00 23:00 07:00 15:00 23:00 Intake Total 840 ml Balance 840 ml Intake Oral 840 ml # Voids 4 # Bowel Movements 2 Result Diagram: 05/30/16 1420 05/30/16 1420 Objective Remarks GENERAL: Elderly male. Patient appears frail CARDIOVASCULAR: Normal rate and regular rhythm without murmurs, gallops, or rubs. RESPIRATORY: Good respiratory efforts. Breath sounds equal and clear to auscultation bilaterally. GASTROINTESTINAL: Abdomen soft, non-tender, non-distended. Normal active bowel sounds MUSCULOSKELETAL: Extremities without cyanosis, or edema. NEURO: Patient is oriented to self and place but not to time. He does have rigidity. Slow speech. PSYCH: Appropriate mood and affect. A/P Assessment and Plan 75 Y/O male with medical history significant for hypertension, prostate cancer, CVA and Parkinsonian features in 2016. Patient presents emergency department after a fall. Patient reports he was trying to lift the television in preparation for moving to [place] to live with his daughter which caused patient to fall. Patient reports he's had generalized weakness for the past 8 months with increasing falls. Patient is noted to have left periorbital ecchymosis. Apparently patient has been declining. Last year he was evaluated by neurology and thought to have parkinsonian features. He appears to be getting worse. Essentially the patient cannot live on his own. He needs to be in the facility. 06/01/16. Daughter agreed to come pick him up and take him to [place]. She is touring facilities in [place]. Case management following. Meanwhile will continue physical therapy here. I believe intermittent confusion is related to sundowning and dementia. Continue with frequent orientation. 06/02/16 Per patient he does not qualify for SNF in [place]. He is willing to go to an [facility]. Will discuss with case management. Hypertension continue home medications amlodipine 5 mg daily, Coreg 3.125 mg every 12 hours, valsartan 160 mg by mouth daily BPH with history of prostate cancer Continue Flomax Jason Naranjo MD Jun 02, 2016 13:49
[2016-06-02 16:00] VITALS: BP 122/83; PULSE 76; RESP 24; TEMP 97.9; O2SAT 95
[2016-06-02] MEDS: TAMSULOSIN HCL 0.4 MG CAP PO SCH (21:27)
[2016-06-02 21:39] VITALS: BP 133/86; PULSE 65; RESP 18; TEMP 98.6; O2SAT 92
[2016-06-03] VITALS (7 sets, daily range): BP systolic 119–125; BP diastolic 75–94; PULSE 60–71; RESP 16–20; TEMP 96.2–98; O2SAT 94–99
[2016-06-03] MEDS: BACITRACIN OINT 0.9 GM PKT TOP SCH (09:00)
[2016-06-03] MEDS: SODIUM CHLORIDE 0.9% FLUSH 5 ML FLUSH FLUSH SCH ×2 (09:06→20:55)
[2016-06-03] MEDS: amLODIPine BESYLATE 5 MG TAB PO SCH (09:06)
[2016-06-03] MEDS: MULTIVITAMINS/MINERALS THERAPEUTIC TAB PO SCH (09:06)
[2016-06-03] MEDS: CARVEDILOL 3.125 MG TAB PO SCH ×2 (09:06→20:55)
[2016-06-03] MEDS: VALSARTAN 160 MG TAB PO SCH (09:07)
--- NOTE | 2016-06-03 13:17 | HHI.PR ---
Subjective Remarks Follow up for fall, needs placement. The patient denies any medical complaints including no pain, chest pain, shortness of breath, or abdominal complaints. He agrees to [facility] placement when arranged. Objective Vitals Vital Signs Date Time Temp Pulse Resp B/P Pulse Ox O2 Delivery O2 Flow Rate FiO2 06/03/16 08:00 96.8 60 17 119/76 99 06/03/16 06:19 97.0 66 20 125/90 94 06/03/16 01:01 97.0 64 20 125/82 95 06/02/16 21:39 98.6 65 18 133/86 92 06/02/16 16:00 97.9 76 24 122/83 95 I/O 06/02/16 06/02/16 06/02/16 06/03/16 06/03/16 06/03/16 07:00 15:00 23:00 07:00 15:00 23:00 Intake Total 960 ml Balance 960 ml Intake Oral 960 ml # Voids 4 # Bowel Movements 2 Result Diagram: 05/30/16 1420 05/30/16 1420 Imaging Last Impressions Maxillofacial CT 05/30/16 1303 Signed Impressions: Service Date/Time: Monday, May 30, 2016 13:48 - CONCLUSION: 1. No acute bony fracture. 2. Chronic bilateral amezquita sinus disease. Wilber Higgins MD Head CT 05/30/16 1303 Signed Impressions: Service Date/Time: Monday, May 30, 2016 13:48 - CONCLUSION: 1. Stable CT scan of the brain compared to the prior study. 2. 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 3. No change in the soft tissue mass in the subcutaneous soft tissues along the posterior right occipital area. Wilber Higgins MD Chest X-Ray 05/30/16 130 Signed Impressions: Service Date/Time: Monday, May 30, 2016 13:17 - CONCLUSION: No acute disease. No significant change has occurred. Wilber Higgins MD Cervical Spine CT 05/30/16 130 Signed Impressions: Service Date/Time: Monday, May 30, 2016 13:48 - CONCLUSION: Stable CT scan of the cervical spine compared to the recent prior study. Wilber Higgins MD Objective Remarks GENERAL: Well-nourished, well-developed elderly frail male patient in NAD. SKIN: Warm and dry. No rash. HEAD: Normocephalic. Atraumatic. NECK: Supple. Trachea midline. CARDIOVASCULAR: Regular rate and rhythm. S1, S2 noted. No murmur appreciated. RESPIRATORY: No accessory muscle use. Clear to auscultation. Breath sounds equal bilaterally. GASTROINTESTINAL: Abdomen soft, non-tender, nondistended. Normoactive bowel sounds x4. MUSCULOSKELETAL: No obvious deformities. Extremities without clubbing, cyanosis , or edema. NEUROLOGICAL: Awake and alert. No obvious cranial nerve deficits. Motor grossly within normal limits. Normal speech. PSYCHIATRIC: Appropriate mood and affect. Medications and IVs Current Medications Medications (Trade) Dose Ordered Sig/Marii Route Start Time Stop Time Status Last Admin (Norvasc) 5 mg DAILY PO 05/31/16 09:00 06/03/16 09:06 (Coreg) 3.125 mg Q12HR PO 05/30/16 21:00 06/03/16 09:06 (Theragran M Tab) 1 tab DAILY PO 05/31/16 09:00 06/03/16 09:06 (Flomax) 0.4 mg HS PO 05/30/16 21:00 06/02/16 21:27 (Diovan) 160 mg DAILY PO 05/31/16 09:00 06/03/16 09:07 (NS Flush) 2 ml UNSCH PRN FLUSH 05/30/16 15:30 (NS Flush) 2 ml BID FLUSH 05/30/16 21:00 06/03/16 09:06 (Tylenol) 650 mg Q4H PRN PO 05/30/16 15:30 (Zofran Inj) 4 mg Q6H PRN IVP 05/30/16 15:30 (Milk Of Magnesia Liq) 30 ml Q12H PRN PO 05/30/16 15:30 (Narcan Inj) 0.4 mg UNSCH PRN IV 05/30/16 15:30 (Bacitracin Oint Packet) 0.9 gm DAILY TOP 05/31/16 09:00 A/P Assessment and Plan 75 Y/O male with medical history significant for hypertension, prostate cancer, CVA and Parkinsonian features in 2016. Patient presents emergency department after a fall. Patient reports he was trying to lift the television in preparation for moving to [place] to live with his daughter which caused patient to fall. Patient reports he's had generalized weakness for the past 8 months with increasing falls. Patient is noted to have left periorbital ecchymosis. Apparently patient has been declining. Last year he was evaluated by neurology and thought to have parkinsonian features. He appears to be getting worse. Essentially the patient cannot live on his own. He needs to be in the facility. Generalized Weakness, Difficulty with ADLs, Unsteady Gait, Frequent Falls: Initially daughter agreed to come pick him up and take him to [place] and place in SNF however reportedly he did not qualify for SNF there so she is no longer coming to get him. Case management following, patient agrees to [facility]. Dementia: likely intermittent confusion is related to sundowning and dementia. Continue with frequent orientation. Hypertension : continue home medications amlodipine 5 mg daily, Coreg 3.125 mg every 12 hours, valsartan 160 mg by mouth daily BPH with history of prostate cancer: Continue Flomax DVT Prophylaxis: SCDs Written by Angelic Garay, acting as scribe for Dr. Rosas on 06/03/16 at 13: 17. Discharge Planning Discharge to [facility] when arranged by case management. Attending Statement The documentation accurately reflects the work performed [id number] by me on 06/03/16 at 13:17. Angelic Garay PA-C Jun 03, 2016 13:17 Jaime Mcnamara MD Jun 05, 2016 13:13
[2016-06-03] MEDS: TAMSULOSIN HCL 0.4 MG CAP PO SCH (20:54)
[2016-06-04 03:51] VITALS: BP 122/79; PULSE 62; RESP 22; TEMP 96.7; O2SAT 97
[2016-06-04 08:00] VITALS: BP 116/83; PULSE 62; RESP 24; TEMP 96; O2SAT 93
[2016-06-04] MEDS: BACITRACIN OINT 0.9 GM PKT TOP SCH (09:00)
[2016-06-04] MEDS: MULTIVITAMINS/MINERALS THERAPEUTIC TAB PO SCH (10:34)
[2016-06-04] MEDS: amLODIPine BESYLATE 5 MG TAB PO SCH (10:34)
[2016-06-04] MEDS: VALSARTAN 160 MG TAB PO SCH (10:34)
[2016-06-04] MEDS: CARVEDILOL 3.125 MG TAB PO SCH ×2 (10:34→20:18)
[2016-06-04] MEDS: SODIUM CHLORIDE 0.9% FLUSH 5 ML FLUSH FLUSH SCH ×2 (10:37→20:18)
[2016-06-04 12:00] VITALS: BP 102/78; PULSE 136; RESP 22; TEMP 97; O2SAT 93
--- NOTE | 2016-06-04 15:22 | HHI.PR ---
Subjective Remarks Denies chest pain or shortness of breath Patient is eating well Denies abdominal pain, nausea or vomiting Stable vital signs Objective Vitals Vital Signs Date Time Temp Pulse Resp B/P Pulse Ox O2 Delivery O2 Flow Rate FiO2 06/04/16 12:00 97.0 136 22 102/78 93 06/04/16 08:00 96.0 62 24 116/83 93 06/04/16 03:51 96.7 62 22 122/79 97 06/03/16 22:30 96.9 70 16 123/94 94 06/03/16 20:17 Room Air 06/03/16 19:56 98.0 68 18 121/78 97 06/03/16 16:00 96.2 63 18 120/75 99 I/O 06/03/16 06/03/16 06/03/16 06/04/16 06/04/16 06/04/16 07:00 15:00 23:00 07:00 15:00 23:00 # Voids 3 # Bowel Movements 0 Imaging Last Impressions Maxillofacial CT 05/30/16 130 Signed Impressions: Service Date/Time: Monday, May 30, 2016 13:48 - CONCLUSION: 1. No acute bony fracture. 2. Chronic bilateral amezquita sinus disease. Wilber Higgins MD Head CT 05/30/161302 Signed Impressions: Service Date/Time: Monday, May 30, 2016 13:48 - CONCLUSION: 1. Stable CT scan of the brain compared to the prior study. 2. 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 3. No change in the soft tissue mass in the subcutaneous soft tissues along the posterior right occipital area. Wilber Higgins MD Chest X-Ray 05/30/161302 Signed Impressions: Service Date/Time: Monday, May 30, 2016 13:17 - CONCLUSION: No acute disease. No significant change has occurred. Wilber Higgins MD Cervical Spine CT 05/30/161302 Signed Impressions: Service Date/Time: Monday, May 30, 2016 13:48 - CONCLUSION: Stable CT scan of the cervical spine compared to the recent prior study. Wilber Higgins MD Objective Remarks GENERAL: Well-nourished, well-developed elderly frail male patient in NAD. SKIN: Warm and dry. No rash. HEAD: Normocephalic. Atraumatic. NECK: Supple. Trachea midline. CARDIOVASCULAR: Regular rate and rhythm. S1, S2 noted. No murmur appreciated. RESPIRATORY: No accessory muscle use. Clear to auscultation. Breath sounds equal bilaterally. GASTROINTESTINAL: Abdomen soft, non-tender, nondistended. Normoactive bowel sounds x4. MUSCULOSKELETAL: No obvious deformities. Extremities without clubbing, cyanosis , or edema. NEUROLOGICAL: Awake and alert. No obvious cranial nerve deficits. Motor grossly within normal limits. Normal speech. PSYCHIATRIC: Appropriate mood and affect. Medications and IVs Current Medications Medications (Trade) Dose Ordered Sig/Marii Route Start Time Stop Time Status Last Admin (Norvasc) 5 mg DAILY PO 05/31/16 09:00 06/04/16 10:34 (Coreg) 3.125 mg Q12HR PO 05/30/16 21:00 06/04/16 10:34 (Theragran M Tab) 1 tab DAILY PO 05/31/16 09:00 06/04/16 10:34 (Flomax) 0.4 mg HS PO 05/30/16 21:00 06/04/16 20:18 (Diovan) 160 mg DAILY PO 05/31/16 09:00 06/04/16 10:34 (NS Flush) 2 ml UNSCH PRN FLUSH 05/30/16 15:30 (NS Flush) 2 ml BID FLUSH 05/30/16 21:00 06/04/16 20:18 (Tylenol) 650 mg Q4H PRN PO 05/30/16 15:30 (Zofran Inj) 4 mg Q6H PRN IVP 05/30/16 15:30 (Milk Of Magnesia Liq) 30 ml Q12H PRN PO 05/30/16 15:30 (Narcan Inj) 0.4 mg UNSCH PRN IV 05/30/16 15:30 (Bacitracin Oint Packet) 0.9 gm DAILY TOP 05/31/16 09:00 (D50w (Vial) Inj) 25 ml UNSCH PRN IV PUSH 06/04/16 15:30 (Glucagon Inj) 1 mg UNSCH PRN OTHER 06/04/16 15:30 A/P Problem List: (1) Generalized weakness ICD Code: R53.1 Status: Acute (2) Falls frequently ICD Code: R29.6 Status: Acute (3) Impaired mobility and activities of daily living ICD Code: Z74.09 Status: Acute (4) Hypertension ICD Code: I10 Status: Chronic (5) Dementia ICD Code: F03.90 Status: Chronic Assessment and Plan 75 Y/O male with medical history significant for hypertension, prostate cancer, CVA and Parkinsonian features in 2016. Patient presents emergency department after a fall. Patient reports he was trying to lift the television in preparation for moving to [place] to live with his daughter which caused patient to fall. Patient reports he's had generalized weakness for the past 8 months with increasing falls. Patient is noted to have left periorbital ecchymosis. Apparently patient has been declining. Last year he was evaluated by neurology and thought to have parkinsonian features. He appears to be getting worse. Essentially the patient cannot live on his own. He needs to be in the facility. Generalized Weakness, Difficulty with ADLs, Unsteady Gait, Frequent Falls: Initially daughter agreed to come pick him up and take him to [place] and place in SNF however reportedly he did not qualify for SNF there so she is no longer coming to get him. Case management following, patient agrees to [facility]. Continue PT. Dementia, patient with intermittent confusion probably related to sundowning and dementia. Continue with frequent orientation. Seems to be stable. Hypertension : continue home medications amlodipine 5 mg daily, Coreg 3.125 mg every 12 hours, valsartan 160 mg by mouth daily. Stable. Continue to monitor vital signs. BPH with history of prostate cancer: Continue Flomax. Seems to be stable. Patient has good urine output. DVT Prophylaxis: SCDs Discharge Planning Discharge to [facility] when arranged by case management. Problem Qualifiers (1) Dementia: Jaime Mcnamara MD Jun 04, 2016 15:22
[2016-06-04] MEDS ORDERED: DEXTROSE 50% IN WATER 50 ML VIAL(D50) IV PUSH PRN (15:30)
[2016-06-04] MEDS ORDERED: GLUCAGON 1 MG/ML VIAL OTHER PRN (15:30)
[2016-06-04 16:00] VITALS: BP 109/83; PULSE 100; RESP 22; TEMP 97.6; O2SAT 98
[2016-06-04] MEDS: INSULIN ASPART SUPPLEMENTAL SCALE SQ SCH ×2 (16:00→20:23)
[2016-06-04 20:00] VITALS: BP 103/90; PULSE 71; RESP 16; TEMP 96.3; O2SAT 97
[2016-06-04] MEDS: TAMSULOSIN HCL 0.4 MG CAP PO SCH (20:18)
[2016-06-04 23:12] LABS: AUTOMATED NEUTROPHIL # 3.9 TH/MM3 (1.8-7.7); BASOPHIL % 0.6 % (0.0-2.0); EOSINOPHIL # 0.3 TH/MM3 (0-0.4); HEMATOCRIT 39.1 % (39.0-51.0); HEMO FLAGS DIFF FINAL; LYMPH % 26.7 % (9.0-44.0); LYMPHOCYTE # 1.9 TH/MM3 (1.0-4.8); MEAN CORPUSCULAR HEMOGLOBIN 28.6 PG (27.0-34.0); MEAN CORPUSCULAR HGB CONC 32.5 % (32.0-36.0); MONO % 13.5 % (0.0-8.0); NEUT % 55.2 % (16.0-70.0); PLATELET COUNT 213 TH/MM3 (150-450); RED BLOOD COUNT 4.44 MIL/MM3 (4.50-5.90); RED CELL DISTRIBUTION WIDTH 14.3 % (11.6-17.2)
[2016-06-04 23:28] LABS: ANION GAP 5 MEQ/L (5-15); AST (GOT) 10 U/L (15-37); BICARBONATE 27.8 MEQ/L (21.0-32.0); BLOOD UREA NITROGEN 16 MG/DL (7-18); CHLORIDE 109 MEQ/L (98-107); GLOMERULAR FILTRATION RATE 78 ML/MIN (>89); POTASSIUM 3.9 MEQ/L (3.5-5.1); SODIUM (NA) 142 MEQ/L (136-145)
[2016-06-04 23:31] LABS: ALKALINE PHOSPHATASE 89 U/L (45-117); ALT (GPT) 22 U/L (12-78); TOTAL BILIRUBIN ADULT 0.4 MG/DL (0.2-1.0)
[2016-06-05] VITALS: BP 123/82; PULSE 66; RESP 16; TEMP 98.2; O2SAT 97
[2016-06-05 04:14] VITALS: BP 102/70; PULSE 86; RESP 16; TEMP 97.9; O2SAT 95
[2016-06-05] MEDS: INSULIN ASPART SUPPLEMENTAL SCALE SQ SCH ×4 (07:00→20:54)
[2016-06-05 08:00] VITALS: BP 105/72; PULSE 64; RESP 18; TEMP 96.3; O2SAT 94
[2016-06-05] MEDS: CARVEDILOL 3.125 MG TAB PO SCH ×2 (09:00→20:47)
[2016-06-05] MEDS: SODIUM CHLORIDE 0.9% FLUSH 5 ML FLUSH FLUSH SCH ×2 (09:13→20:49)
[2016-06-05] MEDS: BACITRACIN OINT 0.9 GM PKT TOP SCH (09:16)
[2016-06-05] MEDS: amLODIPine BESYLATE 5 MG TAB PO SCH (09:16)
[2016-06-05] MEDS: MULTIVITAMINS/MINERALS THERAPEUTIC TAB PO SCH (09:16)
[2016-06-05] MEDS: VALSARTAN 160 MG TAB PO SCH (09:16)
[2016-06-05 12:00] VITALS: BP 94/66; PULSE 85; RESP 18; TEMP 96; O2SAT 96
--- NOTE | 2016-06-05 13:50 | HHI.PR ---
Subjective Remarks No complaints, denies chest pain or shortness of breath or Eating well HIDA 1 episode of hypotension with blood pressure of 94/66 at noon Denies cough Denies diarrhea Objective Vitals Vital Signs Date Time Temp Pulse Resp B/P Pulse Ox O2 Delivery O2 Flow Rate FiO2 06/05/16 08:00 96.3 64 18 105/72 94 06/05/16 06:42 Room Air 06/05/16 04:14 97.9 86 16 102/70 95 06/05/16 00:00 98.2 66 16 123/82 97 06/04/16 20:00 96.3 71 16 103/90 97 06/04/16 16:00 97.6 100 22 109/83 98 I/O 06/04/16 06/04/16 06/04/16 06/05/16 06/05/16 06/05/16 07:00 15:00 23:00 07:00 15:00 23:00 Intake Total 600 ml 480 ml 360 ml Balance 600 ml 480 ml 360 ml Intake Oral 600 ml 480 ml 360 ml # Voids 4 2 1 # Bowel Movements 3 1 Result Diagram: 06/04/16222406/04/162224 Imaging Last Impressions Maxillofacial CT 05/30/16 1303 Signed Impressions: Service Date/Time: Monday, May 30, 2016 13:48 - CONCLUSION: 1. No acute bony fracture. 2. Chronic bilateral amezquita sinus disease. Wilber Higgins MD Head CT 05/30/16 1303 Signed Impressions: Service Date/Time: Monday, May 30, 2016 13:48 - CONCLUSION: 1. Stable CT scan of the brain compared to the prior study. 2. 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 3. No change in the soft tissue mass in the subcutaneous soft tissues along the posterior right occipital area. Wilber Higgins MD Chest X-Ray 05/30/16 130 Signed Impressions: Service Date/Time: Monday, May 30, 2016 13:17 - CONCLUSION: No acute disease. No significant change has occurred. Wilber Higgins MD Cervical Spine CT 05/30/16 1303 Signed Impressions: Service Date/Time: Monday, May 30, 2016 13:48 - CONCLUSION: Stable CT scan of the cervical spine compared to the recent prior study. Wilber Higgins MD Objective Remarks GENERAL: Well-nourished, well-developed elderly frail male patient in [facility]. SKIN: Warm and dry. No rash. HEAD: Normocephalic. Atraumatic. NECK: Supple. Trachea midline. CARDIOVASCULAR: Regular rate and rhythm. S1, S2 noted. No murmur appreciated. RESPIRATORY: No accessory muscle use. Clear to auscultation. Breath sounds equal bilaterally. GASTROINTESTINAL: Abdomen soft, non-tender, nondistended. Normoactive bowel sounds x4. MUSCULOSKELETAL: No obvious deformities. Extremities without clubbing, cyanosis , or edema. NEUROLOGICAL: Awake and alert. No obvious cranial nerve deficits. Motor grossly within normal limits. Normal speech. PSYCHIATRIC: Appropriate mood and affect. Medications and IVs Current Medications Medications (Trade) Dose Ordered Sig/Marii Route Start Time Stop Time Status Last Admin (Norvasc) 5 mg DAILY PO 05/31/16 09:00 06/05/16 09:16 (Coreg) 3.125 mg Q12HR PO 05/30/16 21:00 06/04/16 10:34 (Theragran M Tab) 1 tab DAILY PO 05/31/16 09:00 06/05/16 09:16 (Flomax) 0.4 mg HS PO 05/30/16 21:00 06/04/16 20:18 (Diovan) 160 mg DAILY PO 05/31/16 09:00 06/05/16 09:16 (NS Flush) 2 ml UNSCH PRN FLUSH 05/30/16 15:30 (NS Flush) 2 ml BID FLUSH 05/30/16 21:00 06/05/16 09:13 (Tylenol) 650 mg Q4H PRN PO 05/30/16 15:30 (Zofran Inj) 4 mg Q6H PRN IVP 05/30/16 15:30 (Milk Of Magnesia Liq) 30 ml Q12H PRN PO 05/30/16 15:30 (Narcan Inj) 0.4 mg UNSCH PRN IV 05/30/16 15:30 (Bacitracin Oint Packet) 0.9 gm DAILY TOP 05/31/16 09:00 06/05/16 09:16 (D50w (Vial) Inj) 25 ml UNSCH PRN IV PUSH 06/04/16 15:30 (Glucagon Inj) 1 mg UNSCH PRN OTHER 06/04/16 15:30 Urinary Catheter: No Vascular Central Line Catheter: No A/P Problem List: (1) Generalized weakness ICD Code: R53.1 Status: Acute (2) Dementia ICD Code: F03.90 Status: Chronic (3) Hypertension ICD Code: I10 Status: Chronic (4) Falls frequently ICD Code: R29.6 Status: Acute (5) Impaired mobility and activities of daily living ICD Code: Z74.09 Status: Acute (6) Diabetes ICD Code: E11.9 Status: Acute Plan: Patient had a hemoglobin A1c on 08/17/15 of 6.6. His diagnostic of diabetes. We'll place the patient is a 70 insulin NovoLog and monitor Accu- Cheks. Diabetic Diet. Recheck Hemoglobin A1c. We'll Also Start the Patient on Oral Metformin 500 Mg by Mouth Twice a Day PC. Assessment and Plan 75 Y/O male with medical history significant for hypertension, prostate cancer, CVA and Parkinsonian features in 2016. Patient presents emergency department after a fall. Patient reports he was trying to lift the television in preparation for moving to [place] to live with his daughter which caused patient to fall. Patient reports he's had generalized weakness for the past 8 months with increasing falls. Patient is noted to have left periorbital ecchymosis. Apparently patient has been declining. Last year he was evaluated by neurology and thought to have parkinsonian features. He appears to be getting worse. Essentially the patient cannot live on his own. He needs to be in the facility. Generalized Weakness, Difficulty with ADLs, Unsteady Gait, Frequent Falls: Initially daughter agreed to come pick him up and take him to [place] and place in SNF however reportedly he did not qualify for SNF there so she is no longer coming to get him. Case management following, patient agrees to [facility]. Dementia: likely intermittent confusion is related to sundowning and dementia. Continue with frequent orientation. Hypertension : continue home medications amlodipine 5 mg daily, Coreg 3.125 mg every 12 hours, valsartan 160 mg by mouth daily BPH with history of prostate cancer: Continue Flomax Hypoglycemia: Check hemoglobin A1c. DVT Prophylaxis: SCDs Discharge Planning Discharge to [facility] when arranged by case management. Problem Qualifiers (1) Dementia: (2) Diabetes: Qualified Code: E11.8 - Type 2 diabetes mellitus with complication, without long-term current use of insulin Jaime Mcnamara MD Jun 05, 2016 13:50
[2016-06-05 16:00] VITALS: BP 103/72; PULSE 71; RESP 18; TEMP 98.2; O2SAT 95
[2016-06-05 20:00] VITALS: BP 105/73; PULSE 67; RESP 16; TEMP 98.2; O2SAT 96
[2016-06-05] MEDS: TAMSULOSIN HCL 0.4 MG CAP PO SCH (20:49)
[2016-06-06] VITALS: BP 110/60; PULSE 76; RESP 16; TEMP 97.9; O2SAT 95
[2016-06-06] MEDS: INSULIN ASPART SUPPLEMENTAL SCALE SQ SCH ×4 (06:28→21:00)
[2016-06-06 08:00] VITALS: BP 109/80; PULSE 61; RESP 18; TEMP 96.6; O2SAT 96
[2016-06-06] MEDS ORDERED: metFORMIN HCL 500 MG TAB PO SCH (09:00)
[2016-06-06 09:55] LABS: HEMOGLOBIN A1a 1.3 %; HEMOGLOBIN A1b 1.6 %; HEMOGLOBIN Ao 85.2 %; HEMOGLOBIN LA1C 1.6 %; HEMOGLOBIN P3 3.7 %
[2016-06-06] MEDS: CARVEDILOL 3.125 MG TAB PO SCH ×2 (10:25→21:27)
[2016-06-06] MEDS: MULTIVITAMINS/MINERALS THERAPEUTIC TAB PO SCH (10:25)
[2016-06-06] MEDS: SODIUM CHLORIDE 0.9% FLUSH 5 ML FLUSH FLUSH SCH ×2 (10:25→21:00)
[2016-06-06] MEDS: VALSARTAN 160 MG TAB PO SCH (10:25)
[2016-06-06] MEDS: BACITRACIN OINT 0.9 GM PKT TOP SCH (10:25)
[2016-06-06 12:00] VITALS: BP 103/73; PULSE 73; RESP 18; TEMP 97; O2SAT 96
--- NOTE | 2016-06-06 14:35 | HHI.PR ---
Subjective Remarks Follow-up for generalized weakness. The patient is somewhat confused. Massive anything is wrong and he states "everything". He has no specific medical complaints however. When asked if he is eating, he states "I don't know". He states that he is having bowel movements. He states that he's been working with PT, and is working with them tomorrow. Agreeable to transfer to [place] for continued PT. Objective Vitals Vital Signs Date Time Temp Pulse Resp B/P Pulse Ox O2 Delivery O2 Flow Rate FiO2 06/06/16 12:00 97.0 73 18 103/73 96 06/06/16 08:00 96.6 61 18 109/80 96 06/06/16 07:08 Room Air 06/06/16 00:00 97.9 76 16 110/60 95 06/05/16 20:00 98.2 67 16 105/73 96 06/05/16 16:00 98.2 71 18 103/72 95 I/O 06/05/16 06/05/16 06/05/16 06/06/16 06/06/16 06/06/16 07:00 15:00 23:00 07:00 15:00 23:00 Intake Total 360 ml 600 ml 600 ml 480 ml Balance 360 ml 600 ml 600 ml 480 ml Intake Oral 360 ml 600 ml 600 ml 480 ml # Voids 1 3 2 1 # Bowel Movements 0 Result Diagram: 06/04/16222406/04/162224 Imaging Last Impressions Maxillofacial CT 05/30/16 1303 Signed Impressions: Service Date/Time: Monday, May 30, 2016 13:48 - CONCLUSION: 1. No acute bony fracture. 2. Chronic bilateral amezquita sinus disease. Wilber Higgins MD Head CT 05/30/16 1303 Signed Impressions: Service Date/Time: Monday, May 30, 2016 13:48 - CONCLUSION: 1. Stable CT scan of the brain compared to the prior study. 2. 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 3. No change in the soft tissue mass in the subcutaneous soft tissues along the posterior right occipital area. Wilber Higgins MD Chest X-Ray 05/30/16 1303 Signed Impressions: Service Date/Time: Monday, May 30, 2016 13:17 - CONCLUSION: No acute disease. No significant change has occurred. Wilber Higgins MD Cervical Spine CT 05/30/16 1303 Signed Impressions: Service Date/Time: Monday, May 30, 2016 13:48 - CONCLUSION: Stable CT scan of the cervical spine compared to the recent prior study. Wilber Higgins MD Objective Remarks GENERAL: Well-developed well-nourished. In no acute distress. SKIN: Warm and dry. No lesions noted. HEENT: Normocephalic. Pupils equal and round. Mucous membranes pink and moist. CARDIOVASCULAR: Regular rate and rhythm. No murmur appreciated. RESPIRATORY: No accessory muscle use. Clear to auscultation. Breath sounds equal bilaterally. GASTROINTESTINAL: Abdomen soft, non-tender, nondistended. Bowel sounds x4. MUSCULOSKELETAL: No obvious deformities. No clubbing or cyanosis. No edema. NEUROLOGICAL: Awake and alert. No focal neurological deficits. Moves upper and lower extremities spontaneously. Normal speech. PSYCHIATRIC: Pleasantly confused mood and affect; insight and judgment limited. A/P Problem List: (1) Generalized weakness ICD Code: R53.1 Status: Acute (2) Dementia ICD Code: F03.90 Status: Chronic (3) Hypertension ICD Code: I10 Status: Chronic (4) Falls frequently ICD Code: R29.6 Status: Acute (5) Impaired mobility and activities of daily living ICD Code: Z74.09 Status: Acute (6) Diabetes ICD Code: E11.9 Status: Acute Assessment and Plan 75 Y/O male with medical history significant for hypertension, prostate cancer, CVA and Parkinsonian features in 2016. Patient presents emergency department after a fall. Patient reports he was trying to lift the television in preparation for moving to [place] to live with his daughter which caused patient to fall. Patient reports he's had generalized weakness for the past 8 months with increasing falls. Patient is noted to have left periorbital ecchymosis. Apparently patient has been declining. Last year he was evaluated by neurology and thought to have parkinsonian features. He appears to be getting worse. Essentially the patient cannot live on his own. He needs to be in a facility. Generalized Weakness, Difficulty with ADLs, Unsteady Gait, Frequent Falls: Needs placement SNF vs [facility]. Case management following. Continue daily PT while admitted. Dementia: with likely intermittent confusion is related to sundowning and dementia. Continue with frequent orientation. Hypertension: Episodes of hypotension. Amlodipine discontinued. Decrease home valsartan. Continue carvedilol. Hold parameters in place. BPH with history of prostate cancer: Continue Flomax Diabetes mellitus: With episodes of hypoglycemia. Patient had a hemoglobin A1c on 08/17/15 of 6.6. Started on metformin. Hemoglobin A1c 5.9. Monitor Accu- Cheks and cover with insulin sliding scale if needed. Hypoglycemia protocol in place. DVT Prophylaxis: SCDs Care discussed with Dr. Rosas and Dr. Kaplan. Discharge Planning Case management attempting to arrange placement for the patient, however difficulties with insurance. Plan is to transfer to [place] [place] until placement can be arranged. Problem Qualifiers (1) Dementia: (2) Diabetes: Qualified Code: E11.8 - Type 2 diabetes mellitus with complication, without long-term current use of insulin Fernando Pena Jun 06, 2016 14:35 Jaime Mcnamara MD Jun 06, 2016 18:41
[2016-06-06 18:47] VITALS: BP 105/89; PULSE 64; RESP 18; TEMP 96.6; O2SAT 96
[2016-06-06 20:00] VITALS: BP 134/94; PULSE 61; RESP 20; TEMP 97.3; O2SAT 95
[2016-06-06] MEDS: TAMSULOSIN HCL 0.4 MG CAP PO SCH (21:27)
[2016-06-07] MEDS: INSULIN ASPART SUPPLEMENTAL SCALE SQ SCH ×4 (06:34→20:56)
[2016-06-07 08:00] VITALS: BP 123/85; PULSE 55; RESP 18; TEMP 96; O2SAT 94
[2016-06-07] MEDS: MULTIVITAMINS/MINERALS THERAPEUTIC TAB PO SCH (08:04)
[2016-06-07] MEDS: VALSARTAN 80 MG TAB PO SCH (08:05)
[2016-06-07] MEDS: CARVEDILOL 3.125 MG TAB PO SCH ×2 (08:05→20:57)
[2016-06-07] MEDS: SODIUM CHLORIDE 0.9% FLUSH 5 ML FLUSH FLUSH SCH (08:05)
[2016-06-07] MEDS: metFORMIN HCL 500 MG TAB PO SCH (08:05)
[2016-06-07] MEDS: BACITRACIN OINT 0.9 GM PKT TOP SCH (09:00)
[2016-06-07] MEDS ORDERED: ONDANSETRON ODT 4 MG TAB PO PRN (11:15)
--- NOTE | 2016-06-07 11:16 | HHI.PR ---
Subjective Remarks 75-year-old male who originally presented to hospital because of fall. Patient does have underlying dementia and unable to give much information. Record were reviewed. Patient has had generalized weakness over the past 8 months with increasing falls. Patient was brought to the hospital for evaluation. Patient does have underlying deconditioning/weakness secondary to previous CVA, Parkinsons. During the patients stay, he has had difficulty with medications have been adjusted blood pressure is much improved. Patient had physical therapy evaluation and management. Last time he was seen by physical therapy was on 06/04/16. At that time it is recommended that the patient be discharged to rehabilitation for continued management. As indicated by case management notes that patient is a candidate for rehabilitation, [facility]. They have been in contact with family members and they are requesting that patient can go to [place] for placement if can be arranged. Patient has met three-day stay under inpatient criteria at this time. He does have Medicare. We'll pursue placement to rehabilitation facility this time. Objective Vitals Vital Signs Date Time Temp Pulse Resp B/P Pulse Ox O2 Delivery O2 Flow Rate FiO2 06/07/16 08:56 94 Room Air 06/07/16 08:00 96.0 55 18 123/85 94 06/06/16 20:00 97.3 61 20 134/94 95 06/06/16 19:00 95 Room Air 06/06/16 18:47 96.6 64 18 105/89 96 06/06/16 12:00 97.0 73 18 103/73 96 I/O 06/06/16 06/06/16 06/06/16 06/07/16 06/07/16 06/07/16 07:00 15:00 23:00 07:00 15:00 23:00 Intake Total 480 ml 240 ml 240 ml Balance 480 ml 240 ml 240 ml Intake Oral 480 ml 240 ml 240 ml # Voids 1 2 1 1 # Bowel Movements 0 0 Result Diagram: 06/04/16222406/04/162224 Objective Remarks GENERAL: Well-developed, well-nourished, in no acute distress. alert HEENT: Head is normocephalic without any lesions or masses noted. Facial features are symmetric. Eyes: Extraocular muscles are intact. Conjunctivae were clear. NECK: Supple without any masses. Trachea midline no deviation. No JVD, CARDIAC: Regular rhythm, regular rate. S1/S2 are heard. No murmurs gallops or rubs. LUNGS: Clear to auscultation bilaterally. No wheeze, rhonchi or rales. No use of accessory muscles on inspiration or expiration. ABDOMEN: Soft, nontender. Nondistended. Bowel sounds heard in all 4 quadrants. No organomegaly or masses. Negative rebound, negative guarding EXTREMITIES: No edema, pulses are equal bilaterally. No cyanosis or clubbing NEUROLOGY: Mood and affect appear appropriate. Cranial nerves II through XII grossly intact. Moving all extremities, speech is clear Urinary Catheter: No Vascular Central Line Catheter: No A/P Assessment and Plan Generalized Weakness, in a patient with history of Parkinson's, CVA Difficulty with ADLs, Unsteady Gait, Frequent Falls: Needs placement SNF vs [facility]. Case management following. Continue daily PT while admitted. Dementia: with likely intermittent confusion is related to sundowning and dementia. Continue with frequent orientation. Hypertension: Episodes of hypotension. Medication adjusted with discontinuation of Norvasc, Decreased valsartan 80 mg daily Continue Coreg with hold parameters BPH with history of prostate cancer: Continue Flomax Diabetes mellitus: With episodes of hypoglycemia. Patient had a hemoglobin A1c 5.9. Metformin 500 mg daily Accu-Cheks with sliding scale insulin DVT Prophylaxis: Start subcutaneous Lovenox. Discontinue sequential compression devices Discharge Planning Discharge planning. Patient has had 3 night stay in inpatient status. He does have Medicare. Should be able to discharge patient to rehabilitation today. manager integrity will be consulted, [id number] form will be filled out. Will plan discharge today once radius made by case management. Andrea Gaitan Jun 07, 2016 11:16
[2016-06-07] MEDS: ENOXAPARIN SODIUM 40 MG/0.4 ML SYRINGE SQ SCH (11:47)
[2016-06-07 20:00] VITALS: BP 141/95; PULSE 61; RESP 18; TEMP 97.7; O2SAT 98
[2016-06-07] MEDS: TAMSULOSIN HCL 0.4 MG CAP PO SCH (20:57)
[2016-06-08] MEDS: INSULIN ASPART SUPPLEMENTAL SCALE SQ SCH ×4 (06:38→20:03)
[2016-06-08 08:00] VITALS: BP 128/89; PULSE 69; RESP 20; TEMP 97.5; O2SAT 93
[2016-06-08] MEDS: BACITRACIN OINT 0.9 GM PKT TOP SCH (08:49)
[2016-06-08] MEDS: VALSARTAN 80 MG TAB PO SCH (08:49)
[2016-06-08] MEDS: CARVEDILOL 3.125 MG TAB PO SCH ×2 (08:49→20:03)
[2016-06-08] MEDS: MULTIVITAMINS/MINERALS THERAPEUTIC TAB PO SCH (08:49)
[2016-06-08] MEDS: metFORMIN HCL 500 MG TAB PO SCH (08:49)
[2016-06-08] MEDS: ENOXAPARIN SODIUM 40 MG/0.4 ML SYRINGE SQ SCH (12:20)
--- NOTE | 2016-06-08 13:35 | HHI.PR ---
Subjective Remarks Follow-up for generalized weakness from previous CVA and Parkinson's. Patient states he is hungry. No other complaints. Objective Vitals Vital Signs Date Time Temp Pulse Resp B/P Pulse Ox O2 Delivery O2 Flow Rate FiO2 06/08/16 08:00 97.5 69 20 128/89 93 06/08/16 07:21 97 Room Air 06/07/16 20:00 97.7 61 18 141/95 98 06/07/16 20:00 98 Room Air I/O 06/07/16 06/07/16 06/07/16 06/08/16 06/08/16 06/08/16 07:00 15:00 23:00 07:00 15:00 23:00 Intake Total 240 ml 1150 ml 120 ml Output Total 1 ml Balance 240 ml 1149 ml 120 ml Intake Oral 240 ml 1150 ml 120 ml Output Stool Total 1 ml # Voids 1 1 5 2 1 # Bowel Movements 0 0 Result Diagram: 06/04/16222406/04/162224 Objective Remarks GENERAL: Well-developed patient in no apparent distress. HEAD: Atraumatic. Normocephalic. CARDIOVASCULAR: Regular rate and rhythm. RESPIRATORY: No accessory muscle use. Transmitted upper respiratory sounds. GASTROINTESTINAL: Abdomen soft, non-tender, nondistended. MUSCULOSKELETAL: No lower extremity edema. NEUROLOGICAL: Awake and alert. Urinary Catheter: No Vascular Central Line Catheter: No A/P Problem List: (1) Generalized weakness ICD Code: R53.1 Status: Acute (2) Dementia ICD Code: F03.90 Status: Chronic (3) Hypertension ICD Code: I10 Status: Chronic (4) Falls frequently ICD Code: R29.6 Status: Acute (5) Impaired mobility and activities of daily living ICD Code: Z74.09 Status: Acute (6) Diabetes ICD Code: E11.9 Status: Acute Assessment and Plan Generalized Weakness, in a patient with history of Parkinson's, CVA Difficulty with ADLs, Unsteady Gait, Frequent Falls: Needs placement SNF vs [facility]. Case management following. Continue daily PT while admitted. Dementia: with likely intermittent confusion is related to sundowning and dementia. Continue with frequent orientation. Hypertension: Episodes of hypotension. BP good this morning. Medication adjusted with discontinuation of Norvasc. Decreased valsartan to 80 mg daily Continue Coreg with hold parameters BPH with history of prostate cancer: Continue Flomax Diabetes mellitus: With episodes of hypoglycemia. BGL good at 87 this morning. Patient had a hemoglobin A1c 5.9. Metformin 500 mg daily Accu-Cheks with sliding scale insulin DVT Prophylaxis: Lovenox Discharge Planning Per CM, patient has income for [facility] and CM is to discuss this with patient. Problem Qualifiers (1) Dementia: (2) Diabetes: Qualified Code: E11.8 - Type 2 diabetes mellitus with complication, without long-term current use of insulin Lary Collins Jun 08, 2016 13:35
[2016-06-08 20:00] VITALS: BP_SYST 114; BP_SYST 127; BP_DIAS 86; BP_DIAS 91; PULSE 61; PULSE 76; RESP 18; TEMP 97.2; O2SAT 95; O2SAT 98
[2016-06-08] MEDS: TAMSULOSIN HCL 0.4 MG CAP PO SCH (20:03)
[2016-06-09] MEDS: INSULIN ASPART SUPPLEMENTAL SCALE SQ SCH ×4 (06:41→20:52)
[2016-06-09 07:25] VITALS: BP 112/70; PULSE 64
[2016-06-09] MEDS: CARVEDILOL 3.125 MG TAB PO SCH ×3 (07:34→21:00)
[2016-06-09] MEDS: BACITRACIN OINT 0.9 GM PKT TOP SCH (07:34)
[2016-06-09] MEDS: MULTIVITAMINS/MINERALS THERAPEUTIC TAB PO SCH (07:35)
[2016-06-09] MEDS: metFORMIN HCL 500 MG TAB PO SCH (07:35)
[2016-06-09] MEDS: VALSARTAN 80 MG TAB PO SCH (07:35)
[2016-06-09 08:00] VITALS: BP 97/78; PULSE 53; RESP 16; TEMP 97.3; O2SAT 96
[2016-06-09] MEDS: ENOXAPARIN SODIUM 40 MG/0.4 ML SYRINGE SQ SCH (11:09)
--- NOTE | 2016-06-09 12:10 | HHI.PR ---
Subjective Remarks Follow-up for generalized weakness. Patient has no acute complaints. Objective Vitals Vital Signs Date Time Temp Pulse Resp B/P Pulse Ox O2 Delivery O2 Flow Rate FiO2 06/09/16 08:00 97.3 53 16 97/78 96 06/09/16 07:37 95 Room Air 06/09/16 07:25 64 112/70 06/08/16 20:00 97.2 61 18 114/86 95 06/08/16 19:00 95 Room Air I/O 06/08/16 06/08/16 06/08/16 06/09/16 06/09/16 06/09/16 07:00 15:00 23:00 07:00 15:00 23:00 Intake Total 120 ml 700 ml 120 ml Balance 120 ml 700 ml 120 ml Intake Oral 120 ml 700 ml 120 ml # Voids 2 1 2 1 # Bowel Movements 0 0 Objective Remarks GENERAL: Well-developed patient in no apparent distress. HEAD: Atraumatic. Normocephalic. CARDIOVASCULAR: Regular rate and rhythm. RESPIRATORY: No accessory muscle use. Diminished breath sounds. GASTROINTESTINAL: Abdomen soft, non-tender, nondistended. NEUROLOGICAL: Awake and alert. 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 5/5 strength in bilateral quadriceps. Urinary Catheter: No Vascular Central Line Catheter: No A/P Problem List: (1) Generalized weakness ICD Code: R53.1 Status: Acute (2) Dementia ICD Code: F03.90 Status: Chronic (3) Hypertension ICD Code: I10 Status: Chronic (4) Falls frequently ICD Code: R29.6 Status: Acute (5) Impaired mobility and activities of daily living ICD Code: Z74.09 Status: Acute (6) Diabetes ICD Code: E11.9 Status: Acute Assessment and Plan Generalized Weakness, in a patient with history of Parkinson's, CVA Difficulty with ADLs, Unsteady Gait, Frequent Falls: Needs placement SNF vs [facility]. Case management following. Continue daily PT while admitted. Dementia: with likely intermittent confusion is related to sundowning and dementia. Continue with frequent orientation. Hypertension: Episodes of hypotension. BP 97/78, but MAP good at 84. Medication adjusted with discontinuation of Norvasc. Decreased valsartan to 80 mg daily Continue Coreg with hold parameters Monitor BP and adjust meds as needed BPH with history of prostate cancer: Continue Flomax Diabetes mellitus: With episodes of hypoglycemia. BGLs have remained mostly within normal limits Patient had a hemoglobin A1c 6.6 on 08/17/15. HbA1c 5.9 on 06/04/16. Continue Metformin 500 mg daily Accu-Cheks with sliding scale insulin DVT Prophylaxis: Lovenox Discharge Planning Per CM, patient has income for [facility] and CM is to discuss this with patient. 06/09/16: Spoke with physical therapy who states the patient could go to an [facility] if he has assistance with transfers and ambulation and preferably home health physical therapy. Problem Qualifiers (1) Dementia: (2) Diabetes: Qualified Code: E11.8 - Type 2 diabetes mellitus with complication, without long-term current use of insulin Lary Collins Jun 09, 2016 12:10
[2016-06-09 20:00] VITALS: BP 131/95; PULSE 53; RESP 20; TEMP 97.3; O2SAT 96
[2016-06-09] MEDS: TAMSULOSIN HCL 0.4 MG CAP PO SCH (20:54)
[2016-06-10] MEDS: INSULIN ASPART SUPPLEMENTAL SCALE SQ SCH ×4 (06:29→21:00)
[2016-06-10 09:10] VITALS: BP 121/87; PULSE 76; RESP 15; TEMP 97.5; O2SAT 96
[2016-06-10] MEDS: CARVEDILOL 3.125 MG TAB PO SCH ×2 (09:28→21:00)
[2016-06-10] MEDS: metFORMIN HCL 500 MG TAB PO SCH (09:28)
[2016-06-10] MEDS: MULTIVITAMINS/MINERALS THERAPEUTIC TAB PO SCH (09:28)
[2016-06-10] MEDS: VALSARTAN 80 MG TAB PO SCH (09:28)
[2016-06-10] MEDS: BACITRACIN OINT 0.9 GM PKT TOP SCH (09:28)
[2016-06-10] MEDS: ENOXAPARIN SODIUM 40 MG/0.4 ML SYRINGE SQ SCH (11:21)
--- NOTE | 2016-06-10 12:27 | HHI.PR ---
Subjective Remarks Patient states he had some shaking and I told him this may be related to his Parkinson's. No complaints otherwise. Objective Vitals Vital Signs Date Time Temp Pulse Resp B/P Pulse Ox O2 Delivery O2 Flow Rate FiO2 06/10/16 09:10 97.5 76 15 121/87 96 06/10/16 07:17 94 Room Air 06/09/16 20:00 97.3 53 20 131/95 96 06/09/16 19:00 96 Room Air I/O 06/09/16 06/09/16 06/09/16 06/10/16 06/10/16 06/10/16 07:00 15:00 23:00 07:00 15:00 23:00 Intake Total 120 ml 540 ml 240 ml 480 ml Balance 120 ml 540 ml 240 ml 480 ml Intake Oral 120 ml 540 ml 240 ml 480 ml # Voids 1 3 1 1 1 # Bowel Movements 0 0 0 Objective Remarks GENERAL: Well-developed patient in no apparent distress. CARDIOVASCULAR: Regular rate and rhythm. RESPIRATORY: No accessory muscle use. Diminished breath sounds, but clear. NEUROLOGICAL: Awake and alert. Slow speech. Urinary Catheter: No Vascular Central Line Catheter: No A/P Problem List: (1) Generalized weakness ICD Code: R53.1 Status: Acute (2) Dementia ICD Code: F03.90 Status: Chronic (3) Hypertension ICD Code: I10 Status: Chronic (4) Falls frequently ICD Code: R29.6 Status: Acute (5) Impaired mobility and activities of daily living ICD Code: Z74.09 Status: Acute (6) Diabetes ICD Code: E11.9 Status: Acute Assessment and Plan Generalized Weakness, in a patient with history of Parkinson's, CVA Difficulty with ADLs, Unsteady Gait, Frequent Falls: Needs placement SNF vs [facility]. Case management following. Continue daily PT while admitted. Dementia: with likely intermittent confusion is related to sundowning and dementia. Continue with frequent orientation. Hypertension: with episodes of hypotension. Medication adjusted with discontinuation of Norvasc. Decreased valsartan to 80 mg daily Continue Coreg with hold parameters Monitor BP and adjust meds as needed BPH with history of prostate cancer: Continue Flomax Diabetes mellitus: With episodes of hypoglycemia. BGLs have remained mostly within normal limits Patient had a hemoglobin A1c 6.6 on 08/17/15. HbA1c 5.9 on 06/04/16. Continue Metformin 500 mg daily Accu-Cheks with sliding scale insulin DVT Prophylaxis: Lovenox Discharge Planning Per CM, patient has income for [facility] and CM is to discuss this with patient. 06/09/16: Spoke with physical therapy who states the patient could go to an [facility] if he has assistance with transfers and ambulation and preferably home health physical therapy. 06/10/16: I discussed patient with case maker who states the patient's daughter will pick him up on the . He states that the family is going to arrange for 24 hour supervision care. CM requests home health care [id number] and 4 wheeled walker; going to arrange [place] [facility] care. Apparently the family is going to bring the patient back up to [place] on the . Will place discharge order. Attending Statement The exam, history, and the medical decision-making described in the above note were completed with the assistance of the mid-level provider. I reviewed and agree with the findings presented. I attest that I had a [id number] encounter with the patient on the same day, and personally performed and documented my assessment and findings in the medical record. Seen in room. More lethargic and poorly responsive at the present. Patient will need CT head. UA negative BC pending Problem Qualifiers (1) Dementia: (2) Diabetes: Qualified Code: E11.8 - Type 2 diabetes mellitus with complication, without long-term current use of insulin Lary Collins Jun 10, 2016 12:27 Franchesca Onofre MD Jun 10, 2016 16:21
[2016-06-10] MEDS ORDERED: METF500 PO (15:04)
[2016-06-10] MEDS ORDERED: DIOV80TA4 PO (15:04)
[2016-06-10] MEDS ORDERED: WALKER WHEELS/F1 MIS (15:04)
--- NOTE | 2016-06-10 15:09 | HHI.DCPOC ---
Discharge Care Plan Diagnosis: (1) Generalized weakness (2) Falls frequently (3) Dementia (4) Diabetes (5) Hypertension (6) Dehydration Goals to Promote Your Health * To prevent worsening of your condition and complications * To maintain your health at the optimal level Directions to Meet Your Goals Take your medications as prescribed Follow your dietary instruction Follow activity as directed Keep your appointments as scheduled Take your immunizations and boosters as scheduled If your symptoms worsen call your PCP, if no PCP go to Urgent Care Center or Emergency Room Smoking is Dangerous to Your Health. Avoid second hand smoke Call the 24-hour hour crisis hotline for domestic abuse at Lary Collins Jun 10, 2016 15:09
--- NOTE | 2016-06-10 15:21 | HHI.FF ---
Face to Face Verification Diagnosis: (1) Generalized weakness (2) Falls frequently (3) Dehydration (4) Dementia (5) Diabetes (6) Hypertension Physical Therapy Order: Evaluate and Treat, Improve ambulation, Strength and gait training Home Health Nursing Order: Medical education Diabetic education Medication education-adverse effect Nursing assessment with vital signs I have seen patient Isaac Conte on 06/10/16. My clinical findings support the need for the requested home health care services because: Deconditioned w/ increased weakness Limited ability to care for self High risk of falls I certify that my clinical findings support that this patient is homebound because: Impaired cognitive ability/safety Unsafe to leave home unassisted Lary Collins Jun 10, 2016 15:21
[2016-06-10] MEDS ORDERED: BLOOD GLUCOSE M1 KIT (15:29)
[2016-06-10 20:00] VITALS: BP 102/84; PULSE 74; RESP 21; TEMP 97.5; O2SAT 96
[2016-06-10] MEDS: TAMSULOSIN HCL 0.4 MG CAP PO SCH (21:13)
[2016-06-11] MEDS: INSULIN ASPART SUPPLEMENTAL SCALE SQ SCH ×2 (06:04→11:00)
[2016-06-11 08:30] VITALS: BP 124/72; PULSE 64
[2016-06-11 08:45] VITALS: BP 140/99; PULSE 54; RESP 16; TEMP 96.8; O2SAT 97
[2016-06-11] MEDS: MULTIVITAMINS/MINERALS THERAPEUTIC TAB PO SCH (08:52)
[2016-06-11] MEDS: metFORMIN HCL 500 MG TAB PO SCH (08:52)
[2016-06-11] MEDS: BACITRACIN OINT 0.9 GM PKT TOP SCH (08:52)
[2016-06-11] MEDS: CARVEDILOL 3.125 MG TAB PO SCH (08:52)
[2016-06-11] MEDS: VALSARTAN 80 MG TAB PO SCH (08:52)
--- NOTE | 2016-06-11 09:23 | HHI.PR ---
Subjective Remarks Follow-up for generalized weakness. Patient states he still has a cough but denies any sputum production. Denies any fevers or shortness of breath. Objective Vitals Vital Signs Date Time Temp Pulse Resp B/P Pulse Ox O2 Delivery O2 Flow Rate FiO2 06/11/16 08:45 96.8 54 16 140/99 97 06/11/16 07:19 95 Room Air 06/10/16 20:00 97.5 74 21 102/84 96 06/10/16 20:00 99 Room Air I/O 06/10/16 06/10/16 06/10/16 06/11/16 06/11/16 06/11/16 07:00 15:00 23:00 07:00 15:00 23:00 Intake Total 480 ml 1280 ml 240 ml Balance 480 ml 1280 ml 240 ml Intake Oral 480 ml 1280 ml 240 ml # Voids 1 1 4 1 1 # Bowel Movements 0 0 0 Objective Remarks GENERAL: Well-developed patient in no apparent distress. CARDIOVASCULAR: Regular rate and rhythm. RESPIRATORY: No accessory muscle use. Patient is able to turn on his left side for lung exam. Clear to auscultation bilaterally. GASTROINTESTINAL: Normoactive bowel sounds. Abdomen soft, nontender, nondistended. MUSCULOSKELETAL: No lower extremity edema bilaterally. NEUROLOGICAL: Awake and alert. Slow speech. Urinary Catheter: No Vascular Central Line Catheter: No A/P Problem List: (1) Generalized weakness ICD Code: R53.1 Status: Acute (2) Dementia ICD Code: F03.90 Status: Chronic (3) Hypertension ICD Code: I10 Status: Chronic (4) Falls frequently ICD Code: R29.6 Status: Acute (5) Impaired mobility and activities of daily living ICD Code: Z74.09 Status: Acute (6) Diabetes ICD Code: E11.9 Status: Acute Assessment and Plan Generalized Weakness, in a patient with history of Parkinson's, CVA Difficulty with ADLs, Unsteady Gait, Frequent Falls: Needs placement SNF vs [facility]. Case management following. Continue daily PT while admitted. Dementia: with likely intermittent confusion is related to sundowning and dementia. Continue with frequent orientation. Hypertension: with episodes of hypotension. Medication adjusted with discontinuation of Norvasc. Decreased valsartan to 80 mg daily Continue Coreg with hold parameters Monitor BP and adjust meds as needed. BP mildly elevated this morning prior to medication administration. BPH with history of prostate cancer: Continue Flomax Diabetes mellitus: With episodes of hypoglycemia. BGL good at 82 this morning. Patient had a hemoglobin A1c 6.6 on 08/17/15. HbA1c 5.9 on 06/04/16. Continue Metformin 500 mg daily Accu-Cheks with sliding scale insulin DVT Prophylaxis: Lovenox Discharge Planning Per CM, patient has income for [facility] and CM is to discuss this with patient. 06/09/16: Spoke with physical therapy who states the patient could go to an [facility] if he has assistance with transfers and ambulation and preferably home health physical therapy. 06/10/16: I discussed patient with residential case manager who states the patient's daughter will pick him up on the . He states that the family is going to arrange for 24 hour supervision care. CM requests home health care [id number] and 4 wheeled walker; going to arrange [facility] home care. Apparently the family is going to bring the patient back up to [place] on the . Will place discharge order. 06/11/16: Patient to be picked up at noon today. Problem Qualifiers (1) Dementia: (2) Diabetes: Qualified Code: E11.8 - Type 2 diabetes mellitus with complication, without long-term current use of insulin Lary Collins Jun 11, 2016 09:22
[2016-06-11] MEDS: ENOXAPARIN SODIUM 40 MG/0.4 ML SYRINGE SQ SCH (11:33)
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
== END 2016-06-11 13:17 | disposition home health service (06) ==
LOC: NEPE 12:48 → NEDA 15:21 → NEPGCP 17:05 → N06A 06-03 23:32 → OBSVTOIN 06-04 15:56 → INTOOBSV 06-04 15:56 → PH5A 06-06 18:40
PROVIDERS: ADMIT Hospitalist; ATTEND Hospitalist
DX: R53.1 Weakness (principal); W18.30XA Fall on same level, unspecified, initial encounter; S00.12XA Contusion of left eyelid and periocular area, initial encounter; R26.81 Unsteadiness on feet; R29.6 Repeated falls; E11.649 Type 2 diabetes mellitus with hypoglycemia without coma; I10 Essential (primary) hypertension; E78.5 Hyperlipidemia, unspecified; R07.9 Chest pain, unspecified; F03.90 Unspecified dementia, unspecified severity, without behavioral disturbance, psychotic disturbance, mood disturbance, and anxiety; E86.0 Dehydration; Z74.09 Other reduced mobility; Z85.46 Personal history of malignant neoplasm of prostate
CPT/HCPCS: 70450; 70486; 71010; 72125; 80053; 81001; 82550; 82552; 82948; 83036; 84484; 85025; 85610; 85730; 93005; 97110; 97116; 97163; 99285; G0378; G8987; G8988; J1650; J7030; 76937